=== PATIENT | female | born 1990 | race Caucasian/White ===

== ENCOUNTER 2017-02-17 10:33 | Inpatient (IN) | payer BC ==
[~2017-02-17] VITALS: Ht 180.3 cm; Wt 69.1 kg
[~2017-02-17 10:33] MED LIST: AMITRIPTYLINE H50 MG PO; APIDRA100 UNIT/2 SQ; APIDRA100 UNIT/2 SUB-Q; ASPIR 8181 MG PO; CALCIUM CARBON200 MG PO; CLOTRIMAZOLE45 GM VAGINAL; DIFLUCAN100 MG PO; DIFLUCAN150 MG PO; FLUCONAZOLE150 MG PO; GABAPENTIN100 MG PO; HUMALOG100 UNITS/ INJ; HUMALOG100 UNITS/ IV; IBUPROFEN800 MG PO; INSULIN; INSULIN SYRING1 EA13 MISC; LANTUS100 UNIT/1 SUB-Q; LANTUS100 UNITS/ SUB-Q; LISINOPRIL5 MG PO; LOSARTAN POTASS25 MG PO; LOSARTAN POTASS50 MG PO; MAG-OXIDE400 MG PO; MICONAZOLE NITR45 GM PV; MUCINEX1200 MG PO; NAPROXEN500 MG PO; NICOTINE PATCH1 EAC1 TD; NICOTINE PATCH1 EACH TD; NOVOLIN N100 UNIT/1 SUB-Q; NOVOLIN R100 UNIT/1 INJ; NOVOLOG100 UNITS/; NOVOLOG100 UNITS/ SUB-Q; NYSTOP60 GM TOP; OMEPRAZOLE20 MG PO; ORTHO TRI-CYCL1 EACH PO; OXYCODONE HCL5 MG PO; POTASSIUM 25 M25 MEQ PO; POTASSIUM CHLO20 ME1 PO; RELION NOV100 UNIT/1 SUB-Q; TRAMADOL HCL50 MG PO; ULTRAM50 MG PO; VITAMIN D1000 UNI1 PO; VITAMIN D250000 UNIT PO; ZANTAC150 MG PO; ZOLOFT50 MG PO
[2017-02-17] MEDS ORDERED: SERTRALINE HCL100 MG PO (10:42)
--- OUTSIDE RECORDS SUMMARY | 2017-02-17 10:58 | XMS ---
Demographics + + + | Address | [address] | | | [address] | | | [place] [address] | + + + | Preferred Language | Unknown | + + + | Marital Status | Unknown | + + + | Gnosticist Affiliation | Unknown | + + + | Race | Unknown | + + + | Ethnic Group | Unknown | + + + Author + + + | Author | [facility] | + + + | Organization | [facility] | + + + | Address | [address] | | | [place] [address] | + + + | Phone | | + + + Care Team Providers + + + + | Care Crop And Soil Technician Name | Role | Phone | + + + + Unavailable | Unavailable | + + + + PROBLEMS +---------+ + + +--------+ + + | Type | Condition | ICD9-CM | [id number] | Onset | Condition | SNOMED | | | | Code | Code | Dates | Status | Code | +---------+ + + +--------+ + + | Problem | Pain in | | M25.511 | | Active | [id number] | | | right | | | | | | | | shoulder | | | | | | +---------+ + + +--------+ + + | Problem | Diabetes | E10.65 | | | Active | [id number] | | | mellitus | | | | | [address] | | | type 1, | | | | | | | | uncontroll | | | | | | | | ed | | | | | | +---------+ + + +--------+ + + | Problem | History of | Z86.39 | | | Active | | | | diabetes | | | | | | | | with | | | | | | | | ketoacidos | | | | | | | | is | | | | | | +---------+ + + +--------+ + + | 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 | 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 | | | 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 | | | | | | | | vagina | | | | | | +---------+ + + +--------+ + + | 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 | | | | | | +---------+ + + +--------+ + + | Problem | Depression | | F41.8 | | Active | [id number] | | | with | | | | | | | | anxiety | | | | | | +---------+ + + +--------+ + + | Problem | Hypertensi | | I10 | | Active | 77401113 | | | on | | | | | | +---------+ + + +--------+ + + | Problem | Alcohol | F10.10 | | | Active | 290657965 | | | abuse, | | | | | | | | episodic | | | | | | +---------+ + + +--------+ + + | Problem | Trigger | | M65.322 | | Active | 8058958 | | | finger, | | | | | | | | left index | | | | | | | | finger | | | | | | +---------+ + + +--------+ + + | 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 | | | amine | | | | | | | | abuse | | | | | | +---------+ + + +--------+ + + | Problem | Allergic | 995.3 | | | Active | [id number] | | | Reaction | | | | | | +---------+ + + +--------+ + + | Problem | Vitamin D | | E55.9 | | Active | 44002252 | | | deficiency | | | | | | +---------+ + + +--------+ + + | Problem | Candidal | 112.3 | | | Active | 286575676 | | | intertrigo | | | | | | +---------+ + + +--------+ + + | Problem | Alcoholism | F10.20 | | | Active | 4502458 | +---------+ + + +--------+ + + | Problem | Other | G89.29 | | | Active | 76599560 | | | chronic | | | | | | | | pain | | | | | | +---------+ + + +--------+ + + ALLERGIES Unknown Allergies SOCIAL HISTORY No smoking Hx information available PLAN OF CARE VITAL SIGNS MEDICATIONS Unknown Medications RESULTS No Results PROCEDURES No Known procedures IMMUNIZATIONS No Known Immunizations"
--- NOTE | 2017-02-17 13:15 | NUR ---
PT ADMITTED TO THE UNIT AT THIS TIME, IVF'S AND INSULIN DRIP STARTED ORDER. PT AT TIMES HAS DRY HEAVEING AND UP TO BS COMMODE.
--- NOTE | 2017-02-17 16:02 | NUR ---
insulin drip remains at 4units/hour at this time. pt appears to be resting comfortable at this time.
--- NOTE | 2017-02-17 17:22 | NUR ---
PT ORDERED DINNER AT THIS TIME, HEART RATE CONTIOUES TO 90-100'S. CARDIZEM DRIP @5MG/HR AT THIS TIME.
--- NOTE | 2017-02-17 17:25 | NUR ---
PT UP TO THE BS COMMODE VOIDED, AT TIMES HAS DRY HEAVES. LAB HERE TO OBTAIN A SAMPLE.
--- NOTE | 2017-02-17 19:45 | NUR ---
PT REPORT RECIVED FROM DAY SHIFT RN. PT IS RESTING IN BED AT THIS TIME. ALL QUESTIONS SANSWERED. WILL CALL MD WITH NEXT BLOOD SUGAR RESULT.
--- NOTE | 2017-02-17 20:20 | NUR ---
CALLED TO UPDATE REGAURDING PT BS. NEW ORDERS TO LEAVE INSULIN GTT AT 2 UNITS PER HOUR. STATED TO ONLY CALL IF BS <150 >250. ALSO OKAYED PT TO HAVE ICE CHIPS, WATER, AND CLEAR LIQUIDS WITH NO CARBS OR SUGARS. WILL CONTINUE TO MONITOR.
--- NOTE | 2017-02-17 20:30 | NUR ---
ASSISTED PT UP TO CAMMODE. PT STATES SHE FEELS WEAK WITH THE DKA. NO NAUSEA OR VOMITING. GAVE PT ICE CHIPS AND DIET SPRITE. PT TOLERATED WELL SO FAR. PT ASSESSMENT COMPLETED. PT SKIN IS DIRTY. PT DENIED BATHWIPES AT THIS TIME. WILL CONTINUE TO CLOSELY MONITOR.
--- NOTE | 2017-02-17 22:15 | NUR ---
CALLED MD TO UPDATE ABOUT INCREASE IN PT BS. NEW ORDER TO INCREASE INSULIN GTT TO 3 UNITS PER HOUR. PT SLIGHTLY NAUSEATED AT THIS TIME. GAVE PRN PHENERGAN. WILL CONTINUE TO MONITOR.
--- NOTE | 2017-02-17 23:36 | NUR ---
PT DENIES NAUSEA AT THIS ITME. WILL CONTINUE TO MONITOR.
--- NOTE | 2017-02-18 00:14 | NUR ---
PT BS TRENDING DOWN SINCE MD INCREASED INSULIN GTT TO 3 UNITS/HR. WILL CONTINUE TO CLOSELY MONITOR.
--- NOTE | 2017-02-18 00:35 | NUR ---
CALLED AND UPDATED MD THAT BS INCREASED SLIGHTLY FROM PREVIOUS BS CHECK. IS OKAY WITH PT GTT REMAINING THE SAME AT THIS TIME. WILL CALL WITH NEXT BS AND STAT LABS.
--- NOTE | 2017-02-18 02:00 | NUR ---
called reguarding lab results. per md maintain current fluids and insulin gtt. will try to switch pt from insuling gtt to sub q in the am after labs are checked again. no other issues at this time. will continue to monitor.
--- NOTE | 2017-02-18 04:00 | NUR ---
PT RESTING IN BED AT THIS TIME. WILL CONTINUE TO MONITOR.
--- NOTE | 2017-02-18 05:32 | NUR ---
CALLED MD TO UPDATE REGUARDING PT BS. PER MD TURN GTT BACK TO 2 UNITS PER HOUR. WILL CONTINUE TO MONITOR.
--- NOTE | 2017-02-18 05:50 | NUR ---
PT HAVING NAUSEA. GAVE PRN PHENERGAN FOR NAUSEA. WILL CONTINUE TO MONTIOR AT THIS ITME.
--- NOTE | 2017-02-18 08:53 | NUR ---
REPORT RECEIVED FROM TORRIE FERRARA. PATIENT SLEEPING UPON INITIAL ASSESSMENT AND APPEARS IN NO ACUTE DISTRESS. HEART RATE IN THE 70-80s, SINUS RHYTHM. PT HAS INSULIN GTT INFUSING AT 2 UNITS/HR AT THIS TIME, AND IVF AT 200 ML/HR. PT HAS ONLY 1 IV SITE AT THIS TIME. BLOOD PRESSURE ELEVATED AT 172/117. PATIENT AWAKE, SOMEWHAT DROWSY, BUT RESPONDS APPROPRIATELY. PT ANSWERS QUESTIONS APPROPRIATELY. PT DOES BECOME NAUSEOUS WITH ANY MOVEMENT AND SITS UP IN BED AND SEEMS TO BE CLOSE TO VOMITING. 4 MG IV ZOFRAN GIVEN. ANOTHER IV SITE TO BE OBTAINED. CONTINUE TO MONITOR.
--- NOTE | 2017-02-18 10:02 | NUR ---
DR. MELO IN ROOM TO EVALUATE PATIENT. PATIENT WITHDRAWN AND NOT VERY INTERACTIVE WITH ASSESSMENT. PT TO HAVE CT SCAN OF ABDOMEN TODAY. PT NOT VERY HUNGRY EITHER. CBG AT THIS TIME IS 212. CONTINUE TO MONITOR.
--- NOTE | 2017-02-18 11:14 | NUR ---
PATIENT GIVEN 12 UNITS OF LEVEMIR SQ. PT TO BE TURNED OFF INSULIN GTT AT 1210. PT'S IVF CHANGED TO LR AT 75 ML/HR. PT SIPPING ON CONTRAST DYE. PT'S SIGNIFICANT OTHER IN ROOM AT BEDSIDE. EXPLAINED PLAN OF CARE TO HIM WELL PATIENT. PATIENT RESTING AND NOT WANTING TO BE BOTHERED. CONTINUE TO MONITOR.
--- NOTE | 2017-02-18 12:22 | NUR ---
PATIENT ABLE TO DRINK MOST OF THE FIRST DOSE OF GASTROGRAFIN. PT NOW TO DRINK 2ND DOSE AND CT SCAN WILL OCCUR AROUND 1300. PT'S ASSESSMENT COMPLETE. INSULIN GTT TURNED OFF AT 1215. PT'S CBG AT 1210 WAS 229. PT GIVEN 4 UNITS OF NOVOLOG. S/O OUT OF ROOM AT THIS TIME. CONTINUE TO MONITOR.
--- NOTE | 2017-02-18 13:26 | NUR ---
PATIENT DOWN AND BACK FROM CT SCAN. PT TOLERATED WELL. PT NOW NAUESOUS AND GIVEN IV REGLAN. PT'S S/O IN ROOM SLEEPING IN CHAIR. DENIES FURTHER NEEDS.
--- NOTE | 2017-02-18 16:31 | NUR ---
PATIENT INFORMED OF HER PANCREATITIS AND HER NPO STATUS. PATIENT NOT VERY HAPPY ABOUT NOT BEING ABLE TO DRINK ANYTHING AT ALL, BUT AGREEABLE. PT GIVEN ZOFRAN FOR NAUSEA. PT NOW RESTING IN BED. PT REFUSES TO SHOWER TODAY AND STATES SHE WILL TOMORROW. IVF INFUSING AT 125 ML/HR.
--- NOTE | 2017-02-18 20:20 | NUR ---
GAVE CHARGE NURSE REPORT ON PT. PT HAS ORDERS TO TRANSFER TO [facility]. PER MD PT CAN HAVE CLEAR LIQUIDS TONIGHT AND NPO AT MIDNIGHT FOR STUDY IN THE MORNING. PT UPDATED ON PLAN OF CARE. PT BELONGINGS GATHERED AND SENT WITH PT. ROLL BUILDER TO PT ROOM TO TRANSFER PT IN BED. NO OTHER ISSUES.
--- NOTE | 2017-02-18 20:25 | NUR ---
PT TRANSFERRED FROM ICU TO ROOM 113 MED-SURG VIA BED. PT IS ALERT, SLOW TO RESPOND, BUT RESPONDS APPROP. STATES SHE IS COMFORTABLE, REQUESTING JELLO, ORIENTED TO ROOM AND CALL LIGHT. IVF PATENT. ORDERS NOTED.
--- NOTE | 2017-02-18 22:30 | NUR ---
PT STATES SHE IS FEELING SOME NAUSEA AFTER EATING 2 CUPS OF JELLO. ZOFRAN 4MG IV GIVEN. BOYFRIEND HERE TO STAY. DAYBED MADE UP FOR HIM.
--- NOTE | 2017-02-19 02:50 | NUR ---
BLOODSUGAR 199, STATES SHE IS COMFORTABLE. SBA UP TO BATHROOM TO VOID.
--- NOTE | 2017-02-19 06:46 | NUR ---
SLEPT WELL TONIGHT, USING CALL LIGHT APPROP. FOR ASSIST OOB. NAUSEA BETTER THIS AM. REMAINS NPO. IVF PATENT.
--- NOTE | 2017-02-19 10:09 | NUR ---
PENCIL INSPECTOR IN PATIENT ROOM AT THIS TIME.
--- NOTE | 2017-02-19 10:27 | NUR ---
ASKED PT ABOUT A SHOWER AND SHE STATED THAT SHE WANTED TO WAIT UNTIL SHE GOT TO EAT BECAUSE SHE FELT REALLY WEAK AT THE MOMENT
--- NOTE | 2017-02-19 10:52 | NUR ---
PT ASLEEP AT SHIFT CHANGE, AWAKENED FOR ASSESSMENT. REMAINS NPO FOR ULTRA SOUND. SIGNIFICANT OTHER PRESENT IN ROOM. ULTRA SOUND COMPLETED ADA CLEAR LIQUIDS PROVIDED. PT AGREES TO CALL FOR ASSIST NEEDED REMAINS RESTING IN BED AT THIS TIME
--- NOTE | 2017-02-19 13:35 | NUR ---
PT TOLERATES FULL LIQUID LUNCH (LARGE) DENIES NAUSEA, PAIN, OR OTHER DISCOMFORTS. PT REQUESTS ADVANCE TO REGULAR DIET REPORTED TO DR MELO AGREES FOR DINNER ADA TOLERATED. PT SITTING UP IN BED, BOYFRIEND REMAINS IN ROOM. TV CNC OPERATOR PROGRAMMER LIGHT IN HAND DENIES FURTHER NEEDS
--- NOTE | 2017-02-19 14:47 | NUR ---
ELEVATED BP REPORTED TO DR MELO ORDERS RECIEVED
--- NOTE | 2017-02-19 17:36 | NUR ---
PT TOLERATES 100% OF EVENING MEAL NO C/O NAUSEA OR DISCOMFORT. UP INDEPENDANTLY IN ROOM DENIES NEEDS AT THIS TIME ANTICIPATES GOING HOME TOMORROW
--- NOTE | 2017-02-19 20:50 | NUR ---
PT LAYING IN BED, AWAKE, WATCHING TV. FRIEND ON SOFA IN ROOM. PT PLEASENT, ALERT AND ORIENTED X4. BS 350, RECIEVED SS AND FILI. PT HAS NO NEEDS AT THIS TIME. DENIES PAIN. CALL LIGHT IN REACH.
--- NOTE | 2017-02-20 00:37 | NUR ---
PT APPEARS TO BE SLEEPING. RR WNL AND UNLABORED.
--- NOTE | 2017-02-20 05:09 | NUR ---
PT HAD UNEVENTFUL NIGHT. SLEPT MAJORITY OF SHIFT. NO COMPLAINTS OF PAIN. THE 0200 BS WAS 116, NO SS REQUIRED. BOYFRIEND IN ROOM. POSSIBLE DC TO HOME TODAY.
--- NOTE | 2017-02-20 07:42 | NUR ---
BEDSIDE REPORT RECEIVED FROM SAFEKEEPING CLERK RN USING 5 P'S. PT SLEEPING IN BED. RESP EVEN, UNLABOURED. NO S/S DISTRESS. BOYFRIEND IN ROOM. AWAKE. DENIES NEEDS. CALL LIGHT IN REACH.
--- NOTE | 2017-02-20 08:03 | NUR ---
PATIENT SITTING UP IN BED EATING BREAKFAST. PATIENT STATES SHE WOULD LIKE TO SHOWER AFTER BREAKFAST. NO OTHER NEEDS AT THIS TIME.
--- NOTE | 2017-02-20 09:00 | NUR ---
PT AWAKE AND ALERT IN BED. EATING BREAKFAST. GIVEN INSULIN PER CARB COUNT. DENIES ADDITIONAL NEEDS. CALL LIGHT IN REACH. SO AT BEDSIDE.
[2017-02-20] MEDS ORDERED: LANTUS100 UNITS/ SUB-Q (09:01)
--- NOTE | 2017-02-20 09:02 | NUR ---
Medications reconciled by pharmacist as current and correct using pharmacy records and patient interview. She uses Humalog insulin with carb count + sliding scale
--- NOTE | 2017-02-20 09:31 | NUR ---
SPOKE WITH PATIENT AND BOYFRIEND IN ROOM. PATIENT FEELING "GREAT" AND HOPING TO GO HOME. KNOWS NO BARRIERS TO RETURNING HOME.
[2017-02-20] MEDS ORDERED: NICORETTE4 M2 BUCCAL (11:19)
[2017-02-20] MEDS ORDERED: HUMALOG100 UNIT/2 SUB-Q ×3 (11:20→20:29)
--- NOTE | 2017-02-20 12:33 | NUR ---
BP 160/100 MANUALLY ON DISCHARGE VITALS. NOTIFIED. OK TO SEND PT HOME AND HAVE HER F/U WITH PCP. DC INSTRUCTIONS GIVEN BY PHARMACY AND RN. RN TO CALL WHEN READY FOR DC.
--- NOTE | 2017-02-20 14:04 | NUR ---
VISITED WITH PT SHE WAS PREPARING TO DC. SHE INTRO. ME TO HER BOYFRIEND, AND SAID SHE IS WORKING HARD TO STAY HEALTHIER. SHE HAD A BIG SMILE, AND THANKED ME FOR CHECKING IN ON HER. EXTENDED A BLESSING.
--- NOTE | 2017-02-21 15:22 | NUR ---
SMOKING CESSATION REQUEST FAXED TO PATIENTS PCP, THALIA CHACON.
== END 2017-02-20 12:58 | disposition home or self-care (01) | DRG 438 ==
LOC: ED 10:33 → CCU 13:04 → MS 02-18 20:32
PROVIDERS: ADMIT Internal Medicine
DX: K85.20 Alcohol induced acute pancreatitis without necrosis or infection (principal); E10.10 Type 1 diabetes mellitus with ketoacidosis without coma; Z79.4 Long term (current) use of insulin; F39 Unspecified mood [affective] disorder; I10 Essential (primary) hypertension; M54.9 Dorsalgia, unspecified; F17.210 Nicotine dependence, cigarettes, uncomplicated
CPT/HCPCS: 36415; 74177; 76705; 80048; 80053; 81001; 82010; 82800; 83036; 83690; 83735; 84703; 85025; 96361; 96374; 96375; 99285; 99406; J1650; J2405; J2550; J2765; J3475; J7030; J7042; J7120; Q9967

== ENCOUNTER 2017-06-05 17:07 | Observation (INO) | payer OTHER ==
[~2017-06-05] VITALS: Ht 180.3 cm; Wt 76.5 kg
--- OUTSIDE RECORDS SUMMARY | ~2017-06-05 | XMS ---
Demographics + + + | Address | [address] | | | [address] | | | [place] [address] | + + + | Preferred Language | Unknown | + + + | Marital Status | Unknown | + + + | Orthodox Affiliation | Unknown | + + + | Race | Unknown | + + + | Ethnic Group | Unknown | + + + Author + + + | Author | [facility] | + + + | Organization | [facility] | + + + | Address | [address] | | | [place] [address] | + + + | Phone | | + + + Care Team Providers + + + + | Care Valet Cashier Name | Role | Phone | + + + + Unavailable | Unavailable | + + + + PROBLEMS +---------+ + + +--------+ + + | Type | Condition | ICD9-CM | [id number] | Onset | Condition | SNOMED | | | | Code | Code | Dates | Status | Code | +---------+ + + +--------+ + + | Problem | Pain in | | M25.511 | | Active | [id number] | | | right | | | | | | | | shoulder | | | | | | +---------+ + + +--------+ + + | Problem | Diabetes | E10.65 | | | Active | [id number] | | | mellitus | | | | | [address] | | | type 1, | | [...] | B37.3 | | | Active | 555169882 | | | candidiasi | | | [...] | | F41.8 | | Active | 137487671 | | | with | | | | | | | | anxiety | | | | | | +---------+ + + +--------+ + + | Problem | Hypertensi | | I10 | | Active | 70146993 | | | on | | | | | | +---------+ + + +--------+ + + | Problem | Alcohol | F10.10 | | | Active | 140425218 | | | abuse, | | | | | | | | episodic | | | | | | +---------+ + + +--------+ + + | Problem | Trigger | | M65.322 | | Active | 6866673 | | | finger, | | | | | | | | left index | | | | | | | | finger | | | | | | +---------+ + + +--------+ + + | 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 | 750798962 | | | amine | | | | | | | | abuse | | | | | | +---------+ + + +--------+ + + | Problem | Allergic | 995.3 | | | Active | 696327206 | | | Reaction | | | | | | +---------+ + + +--------+ + + | Problem | Vitamin D | | E55.9 | | Active | 54013970 | | | deficiency | | | | | | +---------+ + + +--------+ + + | Problem | Candidal | 112.3 | | | Active | 636794344 | | | intertrigo | | | | | | +---------+ + + +--------+ + + | Problem | Alcoholism | F10.20 | | | Active | 6093906 | +---------+ + + +--------+ + + | Problem | Other | G89.29 | | | Active | 29622080 | | | chronic | | | | | | | | pain | | | | | | +---------+ + + +--------+ + + ALLERGIES Unknown Allergies SOCIAL HISTORY No smoking Hx information available PLAN OF CARE VITAL SIGNS MEDICATIONS Unknown Medications RESULTS No Results PROCEDURES No Known procedures IMMUNIZATIONS No Known Immunizations"
--- OUTSIDE RECORDS SUMMARY | ~2017-06-05 | XMS ---
Demographics + + + | Address | [address] | | | [address] | | | [place] [address] | + + + | Preferred Language | Unknown | + + + | Marital Status | Unknown | + + + | Pentecostal Affiliation | Unknown | + + + | Race | Unknown | + + + | Ethnic Group | Unknown | + + + Author + + + | Author | [facility] | + + + | Organization | [facility] | + + + | Address | [address] | | | [place] [address] | + + + | Phone | | + + + Care Team Providers + + + + | Care Licensed Therapist Name | Role | Phone | + + + + Unavailable | Unavailable | + + + + PROBLEMS +---------+ + + +--------+ + + | Type | Condition | ICD9-CM | [id number] | Onset | Condition | SNOMED | | | | Code | Code | Dates | Status | Code | +---------+ + + +--------+ + + | Problem | Pain in | | M25.511 | | Active | 198301155 | | | right | | | | | | | | shoulder | | | | | | +---------+ + + +--------+ + + | Problem | Diabetes | E10.65 | | | Active | 1505210039 | | | mellitus | | | | | [address] | | | type 1, | | [...] | B37.3 | | | Active | 445534649 | | | candidiasi | | | [...] | | F41.8 | | Active | 427606679 | | | with | | | | | | | | anxiety | | | | | | +---------+ + + +--------+ + + | Problem | Hypertensi | | I10 | | Active | 78432839 | | | on | | | | | | +---------+ + + +--------+ + + | Problem | Alcohol | F10.10 | | | Active | 735407698 | | | abuse, | | | | | | | | episodic | | | | | | +---------+ + + +--------+ + + | Problem | Trigger | | M65.322 | | Active | 0633944 | | | finger, | | | | | | | | left index | | | | | | | | finger | | | | | | +---------+ + + +--------+ + + | 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 | 961197164 | | | amine | | | | | | | | abuse | | | | | | +---------+ + + +--------+ + + | Problem | Allergic | 995.3 | | | Active | 335372383 | | | Reaction | | | | | | +---------+ + + +--------+ + + | Problem | Vitamin D | | E55.9 | | Active | 52782509 | | | deficiency | | | | | | +---------+ + + +--------+ + + | Problem | Candidal | 112.3 | | | Active | 471425526 | | | intertrigo | | | | | | +---------+ + + +--------+ + + | Problem | Alcoholism | F10.20 | | | Active | 3322751 | +---------+ + + +--------+ + + | Problem | Other | G89.29 | | | Active | 84242796 | | | chronic | | | | | | | | pain | | | | | | +---------+ + + +--------+ + + ALLERGIES + + + + +--------+ | Substance | Reaction | Event Type | Date | Status | + + + + +--------+ | Latex | hives/itching | Drug Allergy | Mar, | Active | + + + + +--------+ | Lisinopril | dry cough | Drug Allergy | Mar, | Active | + + + + +--------+ SOCIAL HISTORY No smoking Hx information available PLAN OF CARE + +---------+ | Activity | Details | + +---------+ +---+ | | +---+ + + + | Follow Up | 6 Weeks Reason:null | + + + VITAL SIGNS + + + + | Height | 68 in | 2017-03-23 | + + + + | Weight | 156.6 lbs | 2017-03-23 | + + + + | BMI | 23.81 kg/m2 | 2017-03-23 | + + + + | Temperature | 98.6 degrees Fahrenheit | 2017-03-23 | + + + + | Heart Rate | 82 /min | 2017-03-23 | + + + + | Blood pressure systolic | 131 mm Hg | 2017-03-23 | + + + + | Blood pressure diastolic | 96 mm Hg | 2017-03-23 | + + + + MEDICATIONS + + + + + + + +--------+ | Medicati | Instruct | Dosage | Frequenc | Start | End Date | Duration | Status | | on | ions | | y | Date | | | | + + + + + + + +--------+ | Glucagon | intramus | as | | 08 Feb, | | | Active | | | cularly | directed | | 2015 | | | | | Emergenc | may | | | | | | | | y 1 MG | repeat q | | | | | | | | | 20 | | | | | | | | | minutes | | | | | | | | | PRN | | | | | | | | | blood | | | | | | | | | sugara | | | | | | | | | <50 | | | | | | | + + + + + + + +--------+ | Insulin | subcutan | as | | 23 Sep, | | | Active | | Syringe | eously 6 | directed | | 2015 | | | | | 31G X | x per | | | | | | | | 5/16 | day | | | | | | | + + + + + + + +--------+ | FreeStyl | In Vitro | as | | 01 Nov, | | | Active | | e Lite | qid | directed | | 2016 | | | | | Test . | blood | | | | | | | | | sugar | | | | | | | | | checks | | | | | | | + + + + + + + +--------+ | NovoLog | | INJECT | | | | 30 | Active | | 100 | | SUBCUTAN | | | | | | | UNIT/ML | | EOUSLY, | | | | | | | | | 1 UNIT | | | | | | | | | FOR | | | | | | | | | EVERY 15 | | | | | | | | | CARBS, | | | | | | | | | THEN FOR | | | | | | | | | EVERY | | | | | | | | | 50 UNITS | | | | | | | | | OVER | | | | | | | | | 150 THEN | | | | | | | | | 1 UNIT | | | | | | | | | IS ADDED | | | | | | | | | 3 TO 4 | | | | | | | | | TIMES | | | | | | | | | DAILY | | | | | | + + + + + + + +--------+ | FreeStyl | | as | | Jul, | | | Active | | e | | directed | | 2014 | | | | | Lancets | | | | | | | | + + + + + + + +--------+ | Insulin | subcutan | as | | Nov, | | | Active | | Syringe- | eously | directed | | 2016 | | | | | Needle | 4x per | | | | | | | | U-40 25G | day | | | | | | | | X 5/8 | | | | | | | | + + + + + + + +--------+ | FreeStyl | In Vitro | as | | Jul, | | | Active | | e Test | check | directed | | 2014 | | | | | | QID | | | | | | | + + + + + + + +--------+ | Sertrali | Orally | 1 tablet | 24h | | | | Active | | ne HCl | Once a | | | | | | | | 100 MG | day | | | | | | | + + + + + + + +--------+ | FreeStyl | | as | | 23 Dec, | | | Active | | e System | | directed | | 2015 | | | | + + + + + + + +--------+ | Humalog | Subcutan | ss: 15 | | | | | Active | | 100 | eous tid | carbs=1 | | | | | | | UNIT/ML | prn | unit. | | | | | | | | high | then for | | | | | | | | blood | every | | | | | | | | sugars | 50 units | | | | | | | | | over | | | | | | | | | 150 then | | | | | | | | | 1 unit | | | | | | | | | is added | | | | | | + + + + + + + +--------+ | Lantus | Subcutan | 12 Units | 12h | | | 30 days | Active | | 100 | eous BID | in AM, | | | | | | | UNIT/ML | | 20 units | | | | | | | | | at HS | | | | | | + + + + + + + +--------+ RESULTS No Results PROCEDURES + + + + + | Procedure | Date Ordered | Related Diagnosis | Body Site | + + + + + | Est Level III | Mar 23, 2017 | | | | Intermediate | | | | + + + + + | DSCHRG MED/CURRENT | Mar 23, 2017 | | | | MED MERGE | | | | + + + + + | DOC MEDS VERIFIED | Mar 23, 2017 | | | | W/PT OR RE | | | | + + + + + IMMUNIZATIONS No Known Immunizations"
--- OUTSIDE RECORDS SUMMARY | ~2017-06-05 | XMS ---
Demographics + + + | Address | [address] | | | [address] | | | [place] [address] | + + + | Preferred Language | Unknown | + + + | Marital Status | Unknown | + + + | Zoroastrian Affiliation | Unknown | + + + | Race | Unknown | + + + | Ethnic Group | Unknown | + + + Author + + + | Author | [facility] | + + + | Organization | [facility] | + + + | Address | [address] | | | [place] [address] | + + + | Phone | | + + + Care Team Providers + + + + | Care Depot Manager Name | Role | Phone | + + + + Unavailable | Unavailable | + + + + PROBLEMS +---------+ + + +--------+ + + | Type | Condition | ICD9-CM | [id number] | Onset | Condition | SNOMED | | | | Code | Code | Dates | Status | Code | +---------+ + + +--------+ + + | Problem | Pain in | | M25.511 | | Active | [id number] | | | right | | | | | | | | shoulder | | | | | | +---------+ + + +--------+ + + | Problem | Diabetes | E10.65 | | | Active | [id number] | | | mellitus | | | | | [address] | | | type 1, | | [...] | B37.3 | | | Active | 669957304 | | | candidiasi | | | [...] | | F41.8 | | Active | 116667751 | | | with | | | | | | | | anxiety | | | | | | +---------+ + + +--------+ + + | Problem | Hypertensi | | I10 | | Active | 75051180 | | | on | | | | | | +---------+ + + +--------+ + + | Problem | Alcohol | F10.10 | | | Active | 999060457 | | | abuse, | | | | | | | | episodic | | | | | | +---------+ + + +--------+ + + | Problem | Trigger | | M65.322 | | Active | [id number] | | | finger, | | | | | | | | left index | | | | | | | | finger | | | | | | +---------+ + + +--------+ + + | 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 | [id number] | | | amine | | | | | | | | abuse | | | | | | +---------+ + + +--------+ + + | Problem | Allergic | 995.3 | | | Active | [id number] | | | Reaction | | | | | | +---------+ + + +--------+ + + | Problem | Vitamin D | | E55.9 | | Active | [id number] | | | deficiency | | | | | | +---------+ + + +--------+ + + | Problem | Candidal | 112.3 | | | Active | [id number] | | | intertrigo | | | | | | +---------+ + + +--------+ + + | Problem | Alcoholism | F10.20 | | | Active | [id number] | +---------+ + + +--------+ + + | Problem | Other | G89.29 | | | Active | [id number] | | | chronic | | | | | | | | pain | | | | | | +---------+ + + +--------+ + + ALLERGIES Unknown Allergies SOCIAL HISTORY No smoking Hx information available PLAN OF CARE VITAL SIGNS MEDICATIONS Unknown Medications RESULTS No Results PROCEDURES No Known procedures IMMUNIZATIONS No Known Immunizations"
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
--- OUTSIDE RECORDS SUMMARY | ~2017-06-05 | XMS ---
Demographics + + + | Address | [address] | | | [address] | | | [place] [address] | + + + | Preferred Language | Unknown | + + + | Marital Status | Unknown | + + + | Faith Affiliation | Unknown | + + + | Race | Unknown | + + + | Ethnic Group | Unknown | + + + Author + + + | Author | [facility] | + + + | Organization | [facility] | + + + | Address | [address] | | | [place] [address] | + + + | Phone | | + + + Care Team Providers + + + + | Care Business Analyst Sales Operations Name | Role | Phone | + + + + Unavailable | Unavailable | + + + + PROBLEMS +---------+ + + +--------+ + + | Type | Condition | ICD9-CM | [id number] | Onset | Condition | SNOMED | | | | Code | Code | Dates | Status | Code | +---------+ + + +--------+ + + | Problem | Pain in | | M25.511 | | Active | [id number] | | | right | | | | | | | | shoulder | | | | | | +---------+ + + +--------+ + + | Problem | Diabetes | E10.65 | | | Active | [id number] | | | mellitus | | | | | [address] | | | type 1, | | [...] | B37.3 | | | Active | 874724801 | | | candidiasi | | | [...] | | F41.8 | | Active | 998219346 | | | with | | | | | | | | anxiety | | | | | | +---------+ + + +--------+ + + | Problem | Hypertensi | | I10 | | Active | 74764074 | | | on | | | | | | +---------+ + + +--------+ + + | Problem | Alcohol | F10.10 | | | Active | 332691316 | | | abuse, | | | | | | | | episodic | | | | | | +---------+ + + +--------+ + + | Problem | Trigger | | M65.322 | | Active | 5615967 | | | finger, | | | | | | | | left index | | | | | | | | finger | | | | | | +---------+ + + +--------+ + + | 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 | 645605702 | | | amine | | | | | | | | abuse | | | | | | +---------+ + + +--------+ + + | Problem | Allergic | 995.3 | | | Active | 698759018 | | | Reaction | | | | | | +---------+ + + +--------+ + + | Problem | Vitamin D | | E55.9 | | Active | 45040405 | | | deficiency | | | | | | +---------+ + + +--------+ + + | Problem | Candidal | 112.3 | | | Active | 337507503 | | | intertrigo | | | | | | +---------+ + + +--------+ + + | Problem | Alcoholism | F10.20 | | | Active | 4457828 | +---------+ + + +--------+ + + | Problem | Other | G89.29 | | | Active | 56905819 | | | chronic | | | | | | | | pain | | | | | | +---------+ + + +--------+ + + ALLERGIES Unknown Allergies SOCIAL HISTORY No smoking Hx information available PLAN OF CARE VITAL SIGNS MEDICATIONS Unknown Medications RESULTS No Results PROCEDURES No Known procedures IMMUNIZATIONS No Known Immunizations"
--- OUTSIDE RECORDS SUMMARY | ~2017-06-05 | XMS ---
Demographics + + + | Address | [address] | | | [address] | | | [place] [address] | + + + | Preferred Language | Unknown | + + + | Marital Status | Unknown | + + + | Holiness Affiliation | Unknown | + + + | Race | Unknown | + + + | Ethnic Group | Unknown | + + + Author + + + | Author | [facility] | + + + | Organization | [facility] | + + + | Address | [address] | | | [place] [address] | + + + | Phone | | + + + Care Team Providers + + + + | Care It Architect Name | Role | Phone | + + + + Unavailable | Unavailable | + + + + PROBLEMS +---------+ + + +--------+ + + | Type | Condition | ICD9-CM | [id number] | Onset | Condition | SNOMED | | | | Code | Code | Dates | Status | Code | +---------+ + + +--------+ + + | Problem | Pain in | | M25.511 | | Active | [id number] | | | right | | | | | | | | shoulder | | | | | | +---------+ + + +--------+ + + | Problem | Diabetes | E10.65 | | | Active | 1526414386 | | | mellitus | | | | | [address] | | | type 1, | | [...] | B37.3 | | | Active | 438179497 | | | candidiasi | | | [...] | | F41.8 | | Active | 514833987 | | | with | | | | | | | | anxiety | | | | | | +---------+ + + +--------+ + + | Problem | Hypertensi | | I10 | | Active | 94590357 | | | on | | | | | | +---------+ + + +--------+ + + | Problem | Alcohol | F10.10 | | | Active | 198489551 | | | abuse, | | | | | | | | episodic | | | | | | +---------+ + + +--------+ + + | Problem | Trigger | | M65.322 | | Active | 5301053 | | | finger, | | | | | | | | left index | | | | | | | | finger | | | | | | +---------+ + + +--------+ + + | 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 | 278176429 | | | amine | | | | | | | | abuse | | | | | | +---------+ + + +--------+ + + | Problem | Allergic | 995.3 | | | Active | 513517993 | | | Reaction | | | | | | +---------+ + + +--------+ + + | Problem | Vitamin D | | E55.9 | | Active | 62558225 | | | deficiency | | | | | | +---------+ + + +--------+ + + | Problem | Candidal | 112.3 | | | Active | 126778270 | | | intertrigo | | | | | | +---------+ + + +--------+ + + | Problem | Alcoholism | F10.20 | | | Active | 8277772 | +---------+ + + +--------+ + + | Problem | Other | G89.29 | | | Active | 26075465 | | | chronic | | | | | | | | pain | | | | | | +---------+ + + +--------+ + + ALLERGIES Unknown Allergies SOCIAL HISTORY No smoking Hx information available PLAN OF CARE VITAL SIGNS MEDICATIONS Unknown Medications RESULTS No Results PROCEDURES No Known procedures IMMUNIZATIONS No Known Immunizations"
[~2017-06-05 17:07] MED LIST changes: +HUMALOG100 UNIT/2 SUB-Q; +NICORETTE4 M2 BUCCAL; +SERTRALINE HCL100 MG PO
[2017-06-05] MEDS ORDERED: COZAAR25 MG PO (17:31)
[2017-06-07] MEDS ORDERED: NICORETTE4 M2 BUCCAL (11:29)
[2017-06-07] MEDS ORDERED: PROMETHAZINE12.5 M1 PO (11:29)
== END 2017-06-07 12:25 | disposition home or self-care (01) ==
LOC: ED 17:07 → CCU 17:09 → MS 06-06 18:15
PROVIDERS: ADMIT Internal Medicine
DX: E10.10 Type 1 diabetes mellitus with ketoacidosis without coma (principal); I10 Essential (primary) hypertension; F17.200 Nicotine dependence, unspecified, uncomplicated; F32.9 Major depressive disorder, single episode, unspecified; R61 Generalized hyperhidrosis; N91.1 Secondary amenorrhea; S80.12XA Contusion of left lower leg, initial encounter; S80.11XA Contusion of right lower leg, initial encounter; S05.11XA Contusion of eyeball and orbital tissues, right eye, initial encounter; S60.221A Contusion of right hand, initial encounter; S50.11XA Contusion of right forearm, initial encounter; W19.XXXA Unspecified fall, initial encounter; W22.09XA Striking against other stationary object, initial encounter; Z91.040 Latex allergy status; Z79.899 Other long term (current) drug therapy
CPT/HCPCS: 36415; 71010; 73090; 73130; 80048; 80053; 81001; 82010; 82800; 83036; 83605; 83690; 84439; 84443; 84703; 85025; 96361; 96374; 96375; 96376; 99291; G0378; J0780; J2405; J2550; J2765; J7030; J7042; J7120

== ENCOUNTER 2017-06-12 12:22 | Emergency (ER) | payer OTHER ==
[~2017-06-12] VITALS: Ht 180.3 cm; Wt 76.3 kg
[~2017-06-12 12:22] MED LIST changes: +COZAAR25 MG PO; +PROMETHAZINE12.5 M1 PO
== END 2017-06-12 15:11 | disposition home or self-care (01) ==
LOC: ED 12:22
DX: S00.83XA Contusion of other part of head, initial encounter (principal); S00.12XA Contusion of left eyelid and periocular area, initial encounter; E10.649 Type 1 diabetes mellitus with hypoglycemia without coma; I10 Essential (primary) hypertension; F17.200 Nicotine dependence, unspecified, uncomplicated; Z98.890 Other specified postprocedural states; Z98.818 Other dental procedure status; Z79.4 Long term (current) use of insulin; Z91.040 Latex allergy status; X58.XXXA Exposure to other specified factors, initial encounter
CPT/HCPCS: 70450; 80053; 81001; 84703; 85025; 99284

== ENCOUNTER 2017-06-23 19:19 | Observation (INO) | payer BC, OTHER ==
[~2017-06-23] VITALS: Ht 172.7 cm; Wt 73.7 kg
--- OUTSIDE RECORDS SUMMARY | ~2017-06-23 | XMS | Clinical Summary ---
Demographics + + + | Address | [address] [place] [address] Rd | | | [place] [address] | + + + | Home Phone | | + + + | Preferred Language | Unknown | + + + | Marital Status | Single | + + + | Alevism Affiliation | NON | + + + | Race | White | + + + | Ethnic Group | Not or | + + + Author + + + | Author | [facility] | + + + | Organization | [facility] | + + + | Address | Unknown | + + + | Phone | Unavailable | + + + Support + + +---------+ + | Name | Relationship | Address | Phone | + + +---------+ + | Rustam Orrin | ECON | Unknown | Unavailable | + + +---------+ + Care Team Providers + +------+ + | Care Linoleum Mechanic Name | Role | Phone | + +------+ + | No Pcp Per Patient | PP | Unavailable | + +------+ + Source Comments BARRY is fully live on both [facility] and [facility]Patient.[facility] Allergies No Known Allergies Current Medications + [...] tablet by | 30 | 0 | 01/ | | Activ | | 10 mg [...] | + + + | Alcohol dependence (HCC) | 08/24/2014 | + + + | Vaginal yeast infection | 08/24/2014 | + + + | DKA (diabetic ketoacidoses) (HCC) | 08/22/2014 | + + + Social [...]
--- NOTE | 2017-06-23 22:35 | NUR ---
PT ARRIVED TO CCU FROM ER. PT ABLE TO TRANSFER TO BED FROM [facility] WITH ONE PERSON STANDBY ASSIST. PT ABLE TO FOLLOW DIRECTIONS. PT DENIES PAIN AND SOB AT THIS TIME. TWO IV SITES INTACT, FLUIDS INFUSING EASILY, FLUSH INFUSES EASILY IN LEFT HAND SITE. PT REQUESTS TO SIT ON BEDSIDE COMMODE, UNABLE TO VOID, THEN BACK TO BED.
--- NOTE | 2017-06-23 23:16 | NUR ---
PT SITTING ON BEDSIDE COMMODE AT THIS TIME. PT DENIES PAIN AND SOB. C/O NAUSEA.
--- NOTE | 2017-06-24 00:30 | NUR ---
PT UP TO BEDSIDE COMMODE, ABLE TO VOID 335 ML, THEN BACK TO BED.
--- NOTE | 2017-06-24 01:15 | NUR ---
CALLED TO UPDATE ON PT BLOOD GLUCOSE OF 167, ORDER GIVEN TO CHANGE IV FLUIDS TO D5 NS WITH 20 OF K WHEN NS BOLUS FINISHED.
--- NOTE | 2017-06-24 01:35 | NUR ---
CALLED TO UPDATE ON PT LABS. ORDER GIVEN TO CHANGE FLUIDS FROM D5 NS WITH 20 OF K TO D5 NS.
--- NOTE | 2017-06-24 03:06 | NUR ---
PT STATES SHE IS FEELING "BETTER", DENIES NAUSEA AT THIS TIME.
--- NOTE | 2017-06-24 04:19 | NUR ---
BOTH IV SITES INTACT, NO REDNESS OR SWELLING NOTED, FLUIDS INFUSING EASILY. PT SLEEPING THROUGH ASSESSMENT, APPEARS COMFORTABLE. VITALS WNL. PT APPEARS TO BE WARM SHE HAS KICKED OFF HER BLANKETS. RESP EVEN AND UNLABORED. PT HAS HAD NO EMISIS SINCE BEING IN ICU.
--- NOTE | 2017-06-24 08:03 | NUR ---
LAB CALLED WITH C02 CRITICAL VALUE OF 8. DR. MELO NOTIFIED. VITAL SIGNS AND ASSESSMENT COMPLETED. PT SLEEPING BUT AWAKENS TO VOICE, PT IS SLIGHTLY CONFUSED WHEN AWAKENED. ACCU CHECK 194, INSULING GTT REMAINS AT 2.8 UNITS/HR.
--- NOTE | 2017-06-24 09:15 | NUR ---
ACCU CHECK 191, NO CHANGE IN INSULIN GTT, REMAINS AT 2.8 UNITS/HR.
--- NOTE | 2017-06-24 10:09 | NUR ---
22G IV STARTED IN LEFT UPPER ARM WITHOUT PROBLEMS. INSULING GTT INFUSING AT 2.8 UNITS/HR. LAB HERE FOR 1000 LAB DRAW. ACCU CHECK 156. PT DRINKING WATER AND DIET SODA WITHOUT PROBLEMS. PT NOW ON SUGAR FREE CLEAR LIQ DIET.
--- NOTE | 2017-06-24 10:53 | NUR ---
ACCU CHECK 175, NO CHANGE IN INSULIN GTT RATE, REMAINS AT 2.8 UNITS/HR.
--- NOTE | 2017-06-24 12:06 | NUR ---
LAB HERE FOR LAB DRAW DUE TO NOT ENOUGH BLOOD DRAWN AT 1000 A.M. MACHINE UNABLE TO RUN BMP. ACCU CHECK 175 INSULIN GTT DECREASED TO 2.4 UNITS/HR.
--- NOTE | 2017-06-24 13:08 | NUR ---
ACCU CHECK 116, INSULING GTT DECREASED TO 0.6 UNITS/HR. PT AWAKE AND EATING JELLO, WATER AND DIET SODA.
--- NOTE | 2017-06-24 15:18 | NUR ---
INSULIN DRIP TITRATED BACK TO 2.4 DUE TO BLOOD SUGAR OF 176
--- NOTE | 2017-06-24 16:52 | NUR ---
ASSESSMENT COMPLETED, PT SLEEPING ON LEFT SIDE BUT AWAKENS TO VOICE, NO C/O AT THIS TIME. IV FLUIDS CHANGED TO D5 NS + 20 MEQ OF KCL AT 200 MLS/HR.
--- NOTE | 2017-06-24 17:01 | NUR ---
ACCU CHECK 194, INSULIN GTT DECREASED TO 2.8 UNITS/HR.
--- NOTE | 2017-06-24 17:57 | NUR ---
ACCU CHECK 178, INSULIN DECREASED TO 2.4 UNITS/HR.
--- NOTE | 2017-06-24 20:23 | NUR ---
BOTH IV SITES IN HANDS DC'D. RT THUMB IV SITE INFILTRATED, PT DENIES PAIN WITH THIS, TIP OF CATH INTACT. IV SITE IN LEFT HAND NO LONGER FLUSHING, DC'D WNL, TIP OF CATH INTACT, PT DENIES PIAN AT THIS SITE WELL. PT ALERT AND ORIENTED X4. VITALS WNL. PT COOPERATIVE AND POLITE, NO LONGER FLAT. PT APPERS TO BE FEELING BETTER AND STATES THAT SHE IS.
--- NOTE | 2017-06-24 21:45 | NUR ---
TORRIE SANDOVAL FROM ER WAS ABLE TO START A 22 G IV IN PT LEFT WRIST. PT YVETTE WELL.
--- NOTE | 2017-06-24 22:45 | NUR ---
PT SLEEPING SOUNDLY, NOT INTERESTED IN EATING AT THIS TIME.
--- NOTE | 2017-06-24 23:15 | NUR ---
INSULIN DRIP AND IV FLUIDS DC'D AT THIS TIME ACCORDING TO 'S ORDERS. IV SITES SALINE LOCKED.
--- NOTE | 2017-06-24 23:30 | NUR ---
PT UP TO BEDSIDE COMMODE, APPEARS TO HAVE NORMAL COORDINATION. PT COOPERATIVE AND POLITE. ALERT AND ORIENTED X4. VITALS WNL, HR ELEVATES SLIGHTLY WITH MOVEMENT.
--- NOTE | 2017-06-25 02:12 | NUR ---
PT SLEEPING SOUNDLY THROUGH BLOOD GLUCOSE CHECK AND INSULIN ADMINISTRATION. VITALS WNL. RESP EVEN AND UNLABORED. CALL LIGHT WITHIN REACH, BED IN LOW POSITION.
--- NOTE | 2017-06-25 04:20 | NUR ---
CALLED TO UPDATE ON PT ELEVATED BP. ORDER GIVEN TO RESUME HOME MEDICAITON OF 25 MG PO COZAR. BP IS 172/111 (125).
--- NOTE | 2017-06-25 04:43 | NUR ---
PT C/O "SOME" NAUSEA, 10 MG COMPAZINE GIVEN IV.
--- NOTE | 2017-06-25 06:05 | NUR ---
PT SLEEPING SOUNDLY, RESP EVEN AND UNLABORED. PT APPEARS COMFORTABLE. HR WNL.
--- NOTE | 2017-06-25 09:14 | NUR ---
DR. MELO IN TO ASSESS PT AND TALK WITH HER CONCERNING HER DISCHARGE HOME. PT EATING BREAKFAST AT THIS TIME.
--- NOTE | 2017-06-25 10:35 | NUR ---
PT ATE SMALL AMT OF ADA BREAKFAST, REQUIRES 1 UNIT OF NOVALOG, ACCU CHECK THIS A.M. 250 REQUIRES 3 UNITS NOVALOG AND LEVAMIR 12 UNITS GIVEN SUBQ. PT RESTING IN BED WATCHING TV.
== END 2017-06-25 11:43 | disposition home or self-care (01) ==
LOC: ED 19:19 → CCU 19:21 → ED 22:25 → CCU 22:25 → ED 22:40 → CCU 06-25 11:43
PROVIDERS: ADMIT Internal Medicine
DX: E10.10 Type 1 diabetes mellitus with ketoacidosis without coma (principal); I10 Essential (primary) hypertension; F17.200 Nicotine dependence, unspecified, uncomplicated; F15.10 Other stimulant abuse, uncomplicated; F39 Unspecified mood [affective] disorder; Z79.899 Other long term (current) drug therapy; Z23 Encounter for immunization; Z91.040 Latex allergy status
CPT/HCPCS: 36415; 71020; 80048; 80053; 81001; 82010; 82800; 83690; 83735; 84703; 85025; 90674; 96361; 96365; 96372; 96374; 96375; 96376; 99285; G0008; G0378; J0780; J1650; J2405; J2550; J7030; J7042

== ENCOUNTER 2017-08-16 00:34 | Inpatient (IN) | payer BC, OTHER ==
[~2017-08-16] VITALS: Ht 172.7 cm; Wt 68.8 kg
--- OUTSIDE RECORDS SUMMARY | ~2017-08-16 | XMS | Clinical Summary ---
Demographics + + + | Address | [address] [place] [address] Rd | | | [place] [address] | + + + | Home Phone | | + + + | Preferred Language | Unknown | + + + | Marital Status | Single | + + + | Yazidism Affiliation | NON | + + + [...] Team Providers + +------+ + | Care Plate Gauger Name | Role | Phone | + +------+ + | No Pcp Per Patient | PP | Unavailable | + +------+ + Source Comments BARRY is fully live on both [facility] and [facility] Allergies No Known Allergies Current Medications + [...] + + | Alcohol dependence ([facility]) | 08/24/2014 | + + + | Vaginal yeast infection | 08/24/2014 | + + + | DKA (diabetic ketoacidoses) ([facility]) | 08/22/2014 | + + + Social [...]
--- OUTSIDE RECORDS SUMMARY | 2017-08-16 01:24 | XMS | Clinical Summary ---
Demographics + + + | Address | [address] [place] [address] Rd | | | [place] [address] | + + + | Home Phone | | + + + | Preferred Language | Unknown | + + + | Marital Status | Single | + + + | Scientologist Affiliation | NON | + + + | Race | White | + + + | Ethnic Group | Not or | + + + Author + + + | Author | [facility] | + + + | Organization | [facility] | + + + | Address | Unknown | + + + | Phone | Unavailable | + + + Support +------+ +---------+ + | Name | Relationship | Address | Phone | +------+ +---------+ + ECON | Unknown | Unavailable | +------+ +---------+ + Care Team Providers + +------+ + | Care Dye Stand Loader Name | Role | Phone | + +------+ + | No Pcp Per Patient | PP | Unavailable | + +------+ + Source Comments BARRY is fully live on both [facility] Amb[facility] and [facility] InPatient.[facility] Allergies No Known Allergies Current Medications + + +---------+---------+------+------+-------+ | Prescription | Sig. | Disp. | Refills | Star | End | Statu | | | | | | t | Date | s | | | | | | Date | | | + + +---------+---------+------+------+-------+ | | Take 1 tablet by | | | | | Activ | | norgestimate-ethinyl | mouth once daily. | | | | | e | | estradiol 0.25-35 | | | | | | | | mg-mcg oral tablet | | | | | | | + + +---------+---------+------+------+-------+ | potassium | Take 25 mEq by mouth | | | | | Activ | | bicarbonate-citric | two times daily. | | | | | e | | acid 25 mEq oral | | | | | | | | tablet, effervescent | | | | | | | + + +---------+---------+------+------+-------+ | magnesium oxide | Take 800 mg by mouth | | | | | Activ | | 400 mg oral tablet | two times daily. | | | | | e | + + +---------+---------+------+------+-------+ | oxyCODONE, | Take 1 tablet by | 20 | 0 | 01/0 | | Activ | | immediate release, 5 | mouth every six | tablet | | 5/20 | | e | | mg oral tablet | hours as needed for | | | 15 | | | | | moderate pain or | | | | | | | | severe pain. | | | | | | + + +---------+---------+------+------+-------+ | fluconazole 150 mg | Take 1 tablet by | 2 | 0 | 01/0 | | Activ | | oral tablet | mouth every | tablet | | 5/20 | | e | | | seventy-two hours. | | | 15 | | | + + +---------+---------+------+------+-------+ | insulin NPH | Inject 14 Units | 10 mL | prn | 01/0 | | Activ | | (HUMULIN N) 100 | under the skin | | | 5/20 | | e | | unit/mL subcutaneous | (SUBC) two times | | | 15 | | | | | daily. Indications: | | | | | | | suspensionIndication | TYPE 1 DIABETES | | | | | | | s: type 1 diabetes | MELLITUS | | | | | | | mellitus | | | | | | | + + +---------+---------+------+------+-------+ | insulin regular | Inject 8 Units under | 10 mL | 3 | 01/0 | | Activ | | (HUMULIN R) 100 | the skin (SUBC) | | | 5/20 | | e | | unit/mL injection | three times daily | | | 15 | | | | solutionIndications: | before meals. Inject | | | | | | | type 1 diabetes | 30 minutes before | | | | | | | mellitus | meal. Indications: | | | | | | | | TYPE 1 DIABETES | | | | | | | | MELLITUS | | | | | | + + +---------+---------+------+------+-------+ | prochlorperazine | Take 1 tablet by | 30 | 0 | 01/0 | | Activ | | 10 mg oral | mouth every six | tablet | | 5/20 | | e | | tabletIndications: | hours as needed for | | | 15 | | | | Nausea and Vomiting | nausea/vomiting. Max | | | | | | | | dose: 40 mg/day | | | | | | | | Indications: NAUSEA | | | | | | | | AND VOMITING | | | | | | + + +---------+---------+------+------+-------+ Active Problems + + + | Problem | Noted Date | + + + | Type 1 diabetes mellitus (HCC) | 08/24/2014 | + + + | Acute pancreatitis | 08/24/2014 | + + + | Alcohol dependence ([facility]) | 08/24/2014 | + + + | Vaginal yeast infection | 08/24/2014 | + + + | DKA (diabetic ketoacidoses) ([facility]) | 08/22/2014 | + + + Social History + +-------+ +--------+------+ | Tobacco Use | Types | Packs/Day | Years | Date | | | | | Used | | + +-------+ +--------+------+ | Never Assessed | | | | | + +-------+ +--------+------+ + + + | Sex Assigned at | Date Recorded | | | | + + + | Not on file | | + + + Last Filed Vital Signs + + + + | Vital Sign | Reading | Time Taken | + + + + | Blood Pressure | 128/102 | 08/25/2014 8:16 AM PST | + + + + | Pulse | 88 | 08/25/2014 8:16 AM PST | + + + + | Temperature | 36.5 C (97.7 F) | 08/25/2014 8:16 AM PST | + + + + | Respiratory Rate | 16 | 08/25/2014 8:16 AM PST | + + + + | Oxygen Saturation | 98% | 08/25/2014 8:16 AM PST | + + + + | Inhaled Oxygen | - | - | | Concentration | | | + + + + | Weight | 75.8 kg (167 lb 1.7 | 08/24/2014 8:34 PM PST | | | oz) | | + + + + | Height | 172.7 cm (5' 8") | 08/22/2014 3:23 PM PST | + + + + | Body Mass Index | 25.41 | 08/24/2014 8:34 PM PST | + + + + Plan of Treatment Not on file Results Not on filefrom Last 3 Months
--- NOTE | 2017-08-16 03:18 | NUR ---
ADMIT TO CCU PER STRETCHER. PT DROWSY AND OCC REQUIRES TO BE ASKED A QUESTION MORE THAN ONCE BEFORE SHE WILL ANSWER. BS 216, INSULIN GTT TO 1.7 UNITS/HR. DENIES NEED TO VOID. CONT TO BE NAUSEATED, NO EMESIS.
--- NOTE | 2017-08-16 04:16 | NUR ---
BS 214, INSULIN GTT TO 1.4 UNITS/HR. ASKING FOR SIP ICE WATER, THEN BACK TO SLEEP.
--- NOTE | 2017-08-16 04:37 | NUR ---
INSULIN TO 2.8 UNITS/HR PER PROTOCOL.
--- NOTE | 2017-08-16 06:35 | NUR ---
PT C/O NAUXEA AT 0525, GIVEN 12.5 PHENERGEN IV. DENIES NAUSEA NOW. UP TO BSC TO VOID. YVETTE BEING UP WELL.
--- NOTE | 2017-08-16 06:56 | NUR ---
BLOOD SUGER 234, INSULIN GTT INC TO 5.1 UNITS PER HR.
--- NOTE | 2017-08-16 07:37 | NUR ---
PATIENT RESTING IN BED UPON INITIAL ASSESSMENT. IVF CHANGED TO D5 NS AT 200 ML/HR. INSULIN GTT INFUSING AT 5.1 UNITS/HR. LAST CBG 234. PT REQUESTING MORE ICE WATER AND DIET 7UP. PT AND RN DISCUSSED PLAN FOR THE DAY. VITALS AND ASSESSMENT COMPLETE. CONTINUE TO MONITOR.
--- NOTE | 2017-08-16 08:15 | NUR ---
INSULIN GTT TURNED DOWN TO 4.2 UNITS/HR. IVF CONTINUE AT 200 ML/HR. PT RESTING AT THIS TIME.
--- NOTE | 2017-08-16 09:46 | NUR ---
PATIENT JUST HAD HER SECOND EMESIS THIS AM OF AROUND 700 ML OF CLEAR FLUID. PATIENT INSTRUCTED TO HOLD OFF ON DRINKING ANY MORE FLUIDS AT THIS POINT. PT AGREEABLE. LAST CBG 196 AND INSULIN GTT INFUSING AT 4.2 UNITS/HR AT THIS TIME. IVF CONTINUE AT 200 ML/HR. DR. MELO UPDATED ON PT'S EMESIS. PATIENT GIVEN 5 MG IV COMPAZINE WELL. PT WAS GIVEN ZOFRAN EARLIER THIS AM. PRN PHENERGAN ALSO AVAILABLE.
--- NOTE | 2017-08-16 10:43 | NUR ---
1000 LABS DRAWN FROM NEW IV SITE PLACED IN RIGHT AC. PT TOLERATED WELL. PT SOMEWHAT DROWSY AFTER COMPAZINE MEDICATION THAT WAS GIVEN. TEMP 98.5 ORAL AT THIS TIME.
--- NOTE | 2017-08-16 12:02 | NUR ---
CBG AT THIS TIME IS 190. PT REMAINS ON INSULIN GTT AT 4.2 UNITS/HR. PT RESTING. ASSESSMENT UNCHANGED FROM PREVIOUS ASSESSMENT TODAY. CONTINUE TO MONITOR.
--- NOTE | 2017-08-16 12:37 | NUR ---
PATIENT REMAINS SLEEPING AT THIS TIME. NO FURTHER NAUSEA SINCE EARLIER THIS AM. LAST CBG 190. INSULIN GTT AT 4.2 UNITS/HR. NEXT LAB DRAWN AT 1500 TODAY. CONTINUE TO MONITOR.
--- NOTE | 2017-08-16 13:13 | NUR ---
PATIENT CBG 166 AT 1300. INSULIN GTT TURNED DOWN TO 3.6 UNITS/HR. PT NOW NAUSEOUS AGAIN AND VOMITING, BUT LESS FLUID TO VOMIT SINCE SHE HAS NOT BEEN EATING OR DRINKING ANYTHING. PT IS STILL YET TO VOID TODAY FOR THIS RN. PT HAS BEEN ASKED SEVERAL TIMES IF SHE NEEDS TO VOID BUT DENIES. CONTINUE TO MONITOR.
--- NOTE | 2017-08-16 15:12 | NUR ---
LAB IN ROOM DRAWING LABS AT THIS TIME. CBG 157 AT THIS TIME. INSULIN GTT TO REMAIN AT 3.6 UNITS/HR. PT SLEEPING AT THIS TIME. CONTINUE TO MONITOR.
--- NOTE | 2017-08-16 15:13 | NUR ---
CORRECTION FROM LAST NOTE, CBG WAS 157 AND INSULIN GTT IS NOW INFUSING AT 2 UNITS/HR PER INSULIN GTT PROTOCOL.
--- NOTE | 2017-08-16 16:47 | NUR ---
PATIENT TO BE TRANSFERRED TO MED/SURG. PT'S LABS DISCUSSED WITH DR. MELO. PATIENT REMAINS ON INSULIN GTT AT 0.9 UNITS/HR BUT WILL BE TAKEN OFF INSULIN GTT AFTER 12 UNITS OF LEVEMIR HAS BEEN GIVEN. PT GIVEN LEVEMIR AROUND 1644. PATIENT ABLE TO TAKE PO PILLS WITHOUT DIFFICULTY, BUT STILL NPO. PT GIVEN JUST A SIP OF WATER TO TAKE PILLLS WITH. PT UPDATED ON PLAN OF CARE. NO FURTHER REQUESTS AT THIS TIME.
--- NOTE | 2017-08-16 17:01 | NUR ---
INSULIN GTT TURNED OFF AT THIS TIME.
--- NOTE | 2017-08-16 17:35 | NUR ---
REPORT GIVEN TO TORRIE GARCÍA AND PATIENT TAKEN OVER TO 113 IN THE BED. ALL PERSONAL BELONGINGS TAKEN WITH PATIENT.
--- NOTE | 2017-08-16 18:23 | NUR ---
PT APPEARS TO BE RESTING COMFORTABLY. LAYING ON SIDE. IVF INFUSING AT 200
--- NOTE | 2017-08-16 19:51 | NUR ---
PATIENT IN BED. WHITEBOARD UPDATED, ROOM TIDIED. GREEN SHEET CHANGED OUT. PATIENT STATES SHE DOES NOT NEED ANYTHING AT THIS TIME.
--- NOTE | 2017-08-16 21:24 | NUR ---
pt appeared to be sleeping when entering room. woke to gentle shake and rn voice. pt alert and orientd x4. pt is diaphoretic, turned down heat in room. pt reports she feels "fine" but is just "tired." no complaints of dizziness. no nausea at this time. turned down heat in room from 76 degrees to 74 degrees. pt's temperature is wnl. pt has no further needs at this time. call light in reach.
--- NOTE | 2017-08-16 22:18 | NUR ---
patient refuses to try and get up to the bathroom. she states she does not feel like she has to go.
--- NOTE | 2017-08-16 22:43 | NUR ---
PT LAYING IN BED, APPEARED TO BE SLEEPING WHEN ENTERING ROOM. WOKE TO RN VOICE. PT DENIES URGE TO VOID. BLADDER SCANNED PT, 450MLS IN BLADDER. ENCOURAGED PT TO GET UP TO BATHROOM AND ATTEMPT VOID. PT VOIDED 250MLS IN HAT AND MISSED SOME OF THE VOID INTO THE TOILET. PT BACK TO BED. NO FURTHER NEEDS. CALL LIGHT IN REACH.
--- NOTE | 2017-08-16 23:07 | NUR ---
RN BLADDER SCANNED PATIENT
--- NOTE | 2017-08-17 00:11 | NUR ---
PT APPEARS TO BE SLEEPING. LIGHTS AND TV OFF IN ROOM.
--- NOTE | 2017-08-17 02:36 | NUR ---
NURSE IN ROOM
--- NOTE | 2017-08-17 02:45 | NUR ---
PT ASLEEP WHEN ENTERING ROOM. WOKE EASILY TO VOICE. DENIES NAUSEA AND PAIN AT THIS TIME. CALL LIGHT IN REACH. NO FURTHER NEEDS.
--- NOTE | 2017-08-17 04:14 | NUR ---
PT APPEARS TO BE SLEEPING. RR WNL AND UNLABORED.
--- NOTE | 2017-08-17 04:57 | NUR ---
NURSE IN ROOM
--- NOTE | 2017-08-17 05:11 | NUR ---
PT SLEPT MAJORITY OF SHIFT. FLAT AFFECT, BUT SHE IS POLITE. ORIENTED X4. STANDBY ASSIST. BS AND SS Q4. PT DENIED NAUSEA ALL SHIFT AND NO PAIN. NO FEVERS.
--- NOTE | 2017-08-17 05:46 | NUR ---
pt up to bathroom to void. standby assist, tolerated well. no further needs. call light in reach.
--- NOTE | 2017-08-17 07:17 | NUR ---
PT LAYING ON SIDE IN BED. RESPONSIVE AND FRIENDLY. SHE SAID SHE IS FEELING BETTER, HAD PRAYER WITH PT, NEED TO HELP HER WITH A POSITIVE PLAN FOR HER LIFE
--- NOTE | 2017-08-17 07:27 | NUR ---
RECIEVED REPORT FROM SALES AUDIT CLERK NURSE. PATIENT SLEEPING. IVF INFUSING W/O DIFFICULTY. CALL LIGHT IN REACH.
--- NOTE | 2017-08-17 08:51 | NUR ---
PATIENT RESTING IN BED. TOILETING OFFERED, PATIENT REFUSED AT THIS TIME, WILL TRY AGAIN BEFORE 10 AM. LUNGS ARE CLEAR, HR REGULAR, NO EDEMA, NO C/O PAIN OR NAUSEA. VS OBTAINED. ICE CHIPS DELIVERED. PATIENT DENIES FURTHER NEEDS. CALL LIGHT IN REACH. EDUCATED PATIENT ABOUT STRICT OUTPUT.
--- NOTE | 2017-08-17 10:00 | NUR ---
PT UP TO BATHROOM TO ATTEMPT TO VOID, UNABLE TO VOIC. RN NOTIFIED.
--- NOTE | 2017-08-17 10:05 | NUR ---
NEW BAG OF IV FLUIDS HUNG AT THIS TIME, PATIENT DENIES OTHER NEEDS AT THIS TIME
--- NOTE | 2017-08-17 10:18 | NUR ---
PATIENT'S BLOOD GLUCOSE WAS 241, 4 UNITS OF NOVOLOG GIVEN SQ IN THE LEFT ARM. PATIENT DENIES ANY PAIN OR OTHER NEEDS AT THIS TIME
--- NOTE | 2017-08-17 11:08 | NUR ---
PATIENT RESTING IN BED. STATES SHE IS HUNGRY AND WOULD LIKE TO EAT. PATIENT DENIES NAUSEA OR PAIN. PATIENT UP TO BATHROOM INDEPENDENTLY. VOIDED. DENIES FURTHER NEEDS. CALL LIGHT IN REACH.
[2017-08-17] MEDS ORDERED: LOSARTAN POTASS50 MG PO (11:14)
--- NOTE | 2017-08-17 11:55 | NUR ---
PATIENT RESTING IN BED. SET UP CHAIR FOR HER TO SIT IN BUT SHE REFUSES AT THIS POINT. ALSO OFFERED TO SET PATIENT UP WITH A SHOWER. DELIVERED JELLO AND WATER PITCHER. IVF INFUSING W/O DIFFICULTY. PATIENT DENIES FURTHER NEEDS.
--- NOTE | 2017-08-17 13:48 | NUR ---
PATIENT UP TO BATHROOM, VOIDED, BACK TO BED. ENCOURAGED PATIENT TO AMBULATE HALLWAY AND TAKE A SHOWER. AT THE MOMENT SHE IS ENJOYING A CUP OF BROTH, I TOLD HER TO USE HER CALL LIGHT WHEN SHE IS READY FOR A SHOWER/WALK. PATIENT IS TOLERATING CLEAR LIQUIDS. PATIENT DENIES PAIN AND NAUSEA. WATER PITCHER FILLED. CALL LIGHT IN REACH.
--- NOTE | 2017-08-17 14:13 | NUR ---
PATIENT RESTING IN BED. ONCE AGAIN I ENCOURAGED AMBULATING HALLWAYS AND A SHOWER. PATIENT STATES SHE WOULD LIKE TO WAIT UNTIL TOMORROW TO SHOWER. I SET THE CHAIR UP FOR HER SO THAT SHE MAY SIT UPRIGHT IF SHE CHOOSES. PATIENT HAS BEEN IN BED ALL DAY. LUNGS ARE CLEAR IN UPPERS AND DIMINISHED IN LOWER LOBES. HR REGULAR, NO EDEMA. BS ACTIVE. PATIENT HAS NOT HAD A BM FOR A COUPLE DAYS, PATIENT STATES THAT IS NORMAL FOR HER WHEN SHE COMES TO THE HOSPITAL. PATIENT DENIES PAIN AND NAUSEA. TOLERATING CLEAR LIQUIDS WELL. BLOOD SUGAR OBTAINED. ADMINISTERED INSULIN PER SLIDING SCALE. IVF INFUSING W/O DIFFICULTY. PATIENT DENIES FURTHER NEEDS.
--- NOTE | 2017-08-17 15:11 | NUR ---
NEW BAG OF IV FLUID HUNG, PATIENT IS RESTING WITH EYES CLOSED ON HER LEFT SIDE.
--- NOTE | 2017-08-17 16:10 | NUR ---
D/C IVF. ORDERED PATIENT A FULL LIQUID TRAY. DELIVERED DIET SODA AND JELLO. PATIENT UP TO BATHROOM INDEPENDENTLY TO VOID. PATIENT DENIES FURTHER NEEDS. CALL LIGHT IN REACH.
--- NOTE | 2017-08-17 17:01 | NUR ---
BLOOD SUGAR OBTAINED. CONTACTED DIETARY TO FIND OUT HOW MANY CARBS SHE WILL HAVE WITH DINNER. DIETARY STATES SHE WILL HAVE 30 CARBS. ADMINISTERED INSULIN ACCORDINGLY. PATIENT RESTING IN BED. DENIES NEEDS AT THIS TIME. CALL LIGHT IN REACH.
--- NOTE | 2017-08-17 18:43 | NUR ---
PATIENT STATES SHE IS STILL HUNGRY. NOTIFIED MD WE WILL NEED ANOTHER INSULIN ORDER. DIETARY CONFIRMED 52G OF CARBS ON TRAY. ADMINISTERED INSULIN ACCORDINGLY. MEAL TRAY SERVED, PATIENT DENIES FURTHER NEEDS.
--- NOTE | 2017-08-17 19:10 | NUR ---
BEDSIDE REPORT RECEIVED FROM TORRIE EASLEY. PT AWAKE, SITTING UP IN BED, TALKING ON PHONE. PT HAS NO REQUESTS AT THIS TIME. WILL CONTINUE TO MONITOR. CALL LIGHT IN REACH.
--- NOTE | 2017-08-17 20:42 | NUR ---
CBG 117 AT THIS TIME. PT DENIES PAIN, DENIES NAUSEA. REQUESTING SOUP, STATING SHES HUNGRY. CALL LIGHT IN REACH.
--- NOTE | 2017-08-17 21:01 | NUR ---
PT ASSESSMENT COMPLETE. PT LUNGS CLEAR THROUGHOUT ALL LOBES. CSM INTACT. ABDOMEN SOFT, NON-TENDER WITH DEEP PALPATION, BOWEL TONES ACTIVE X 4. PT DENIES NAUSEA. PT GIVEN CREAM OF CHICKEN SOUP, SUGAR FREE JELLO, AND ICE WATER. PT GIVEN TOOTHBRUSH, MOUTHWASH, WASH CLOTHES, NO ADDITIONAL REQUESTS. CALL LIGHT GIVEN TO PT.
--- NOTE | 2017-08-17 22:14 | NUR ---
VITALS AND I&OS DONE. PT HAS NO CONCERNS OR NEEDS AT THIS TIME. CALL LIGHT AND BEDSIDE TABLE IS WITHIN REACH.
--- NOTE | 2017-08-17 23:21 | NUR ---
PT LYING ON LEFT SIDE, EYES CLOSED, BREATHING VISIBLE NON-LABORED, LIGHTS OFF IN ROOM. DOES NOT AWAKEN TO RN ENTERING ROOM.
--- NOTE | 2017-08-18 00:34 | NUR ---
PT SLEEPING, RR 18, LIGHTS OFF IN ROOM, CALL LIGHT IN REACH.
--- NOTE | 2017-08-18 02:00 | NUR ---
PT ASSESSMENT COMPLETE. PT LYING IN BED, AWAKENS TO VOICE WHEN RN ENTERS ROOM. PT REQUESTED ICE WATER. BOWEL TONES ACTIVE, ABD NON-TENDER. LUNGS SOUND CLEAR THROUGHOUT ALL LOBES. PT HAS CALL LIGHT IN REACH. NO ADDITIONAL REQUESTS AT THIS TIME.
--- NOTE | 2017-08-18 04:29 | NUR ---
CHECED ON PT, PT SLEEPING ON LEFT SIDE, EYES CLOSED, VISIBLE CHEST RISE, CALL LIGHT IN REACH.
--- NOTE | 2017-08-18 04:49 | NUR ---
PT HAS SLEPT MOST OF SHIFT, INDEPENDENT IN ROOM. CONTINUES TO HAVE APPETITE, TOLERATING FULL LIQUID DIET WELL, DENIES NAUSEA, DENIES PAIN. ABDOMEN NON-TENDER, BOWEL TONES ACTIVE. IV SITES FLUSH WELL, WNL.
--- NOTE | 2017-08-18 05:56 | NUR ---
VITALS AND I&OS DONE. PER PT REQUEST I GOT HER SUGAR FREE JELLO AND DIET SPRITE. BEDSIDE TABLE AND CALL LIGHT WITHIN REACH.
--- NOTE | 2017-08-18 06:27 | NUR ---
PT APPEARS TO BE SLEEPING, EYES CLOSED, BREATHING NON-LABORED. CALL LIGHT IN REACH.
--- NOTE | 2017-08-18 08:18 | NUR ---
PATIENT SAID SHE WILL TAKE HER SHOWER LATER. SET UP SHOWER. PATIENT IS SLEEPING NOW.
--- NOTE | 2017-08-18 09:00 | NUR ---
patient sitting up in bed. patient tolerated 25 percent of full liquid breakfast. new order for ada diet ( regular food). patient stating she would like to order some more breakfast. patient stating no pain. blood sugar 150. gave 2 units per ss and 2 units based on carbs that were ate ( a total of 33 carbs = 2 units of insulin. ) vitals taken. morning medication given.
--- NOTE | 2017-08-18 09:43 | NUR ---
CALLED PATIENTS PCP OFFICE CHW KHUSHBU YESTERDAY TO ALERT HER TO PATIENTS HOMELESS STATE AND HOSPITALIZATION. TODAY CHARGE NURSE ON MEDICAL FLOOR STATES THAT KHUSHBU DID COME SEE PATIENT YESTERDAY.
--- NOTE | 2017-08-18 10:39 | NUR ---
patient assisted to the shower. linen changed. patient stating no pain. tolerated ada diet. no new insulin due to being less than 15carbs on tray.
--- NOTE | 2017-08-18 10:43 | NUR ---
CHECK ON PATIENT SHE IS JUST GETTING OUT OF THE SHOWER. NURSE CHANGED HER LINENS.
--- NOTE | 2017-08-18 12:26 | NUR ---
patient had financal aid group sales representative in room. bs 272. patient recieved 6 units per ss. 4 units per her 61 carb lunch that she tolerated 100 percent of. patient asking if she was going to get to go home today. awaiting rounding with dr. pettit.
--- NOTE | 2017-08-18 13:05 | NUR ---
patient resting in chair. no other needs at this time. will continue to monitor.
[2017-08-18] MEDS ORDERED: NICOTINE1 EAC1 TD (13:22)
--- NOTE | 2017-08-18 13:56 | NUR ---
PER RN, PT'S IV DC'D BY THIS MECHANICAL ASSEMBLER. PT INFORMED THAT RN WILL BE IN WITH HER PAPERWORK SHORTLY.
--- NOTE | 2017-08-18 14:01 | NUR ---
PT SEEMED TO BE FEELING BETTER TODAY. SHE WAS ABLE TO EAT TODAY AND THAT SEEMED TO PERK HER UP. I ENCOURAGED HER TO STAY IN TOUCH WITH HER FAMILY, SOME WHAT ESTRANGED. THEY WERE NOT AWARE SHE WAS AT [facility], AND DID NOT WANT TO UPSET THEM. EXTENDED A BLESSING, WILL FOLLOW
--- NOTE | 2017-08-18 14:09 | NUR ---
DISCHARGE PAPER WORK GIVEN. IV TAKEN OUT. PATIENT TOLERATED WELL. NO DURTHER QUESTIONS AT THIS TIME. PATIENT REQUEST CARE RIDE TICKET. CALLED NURSING SUP.
== END 2017-08-18 14:27 | disposition home or self-care (01) | DRG 438 ==
LOC: ED 00:34 → CCU 02:30 → MS 17:35
PROVIDERS: ADMIT Internal Medicine
DX: K85.20 Alcohol induced acute pancreatitis without necrosis or infection (principal); E10.10 Type 1 diabetes mellitus with ketoacidosis without coma; I10 Essential (primary) hypertension; F39 Unspecified mood [affective] disorder; Z59.0 Homelessness; Z56.0 Unemployment, unspecified; Z79.4 Long term (current) use of insulin; F17.200 Nicotine dependence, unspecified, uncomplicated
CPT/HCPCS: 36415; 80048; 80053; 81001; 82010; 82800; 82803; 83036; 83690; 84703; 85025; 96365; 96375; 96376; 99285; 99406; J0780; J1200; J1650; J2405; J2550; J2765; J7030; J7042; J7120

== ENCOUNTER 2017-11-20 21:02 | Observation (INO) | payer OTHER ==
[~2017-11-20] VITALS: Ht 172.7 cm; Wt 72.8 kg
[~2017-11-20 21:02] MED LIST changes: +NICOTINE1 EAC1 TD
[2017-11-21] MEDS ORDERED: TYLENOL325 MG PO (14:42)
[2018-02-05] MEDS ORDERED: NICORETTE4 M2 BUCCAL (10:59)
== END 2017-11-22 14:05 | disposition home or self-care (01) ==
LOC: ED 21:02 → CCU 23:03 → MS 11-21 15:08
PROVIDERS: ADMIT Internal Medicine
DX: E10.10 Type 1 diabetes mellitus with ketoacidosis without coma (principal); I10 Essential (primary) hypertension; F33.9 Major depressive disorder, recurrent, unspecified; F17.200 Nicotine dependence, unspecified, uncomplicated; Z79.899 Other long term (current) drug therapy; Z91.040 Latex allergy status
CPT/HCPCS: 36415; 80048; 80053; 81001; 82010; 82800; 83036; 83690; 84703; 85025; 96372; 96374; 96375; 96376; 99285; 99406; G0378; G0480; J0780; J1650; J2060; J2405; J2550; J2765; J7030; J7042

== ENCOUNTER 2018-03-04 18:04 | Observation (INO) | payer OTHER ==
[~2018-03-04] VITALS: Ht 172.7 cm; Wt 77.2 kg
[~2018-03-04 18:04] MED LIST changes: +TYLENOL325 MG PO
[2018-03-04] MEDS ORDERED: GLUCAGON EMERGEN1 MG INJ (18:27)
[2018-03-04] MEDS ORDERED: METOCLOPRAMIDE H5 MG PO (18:27)
--- NOTE | 2018-03-04 22:10 | NUR ---
PT ARRIVED TO FLOOR VIA STRETCHER, WAS ABLE TO AMBULATE INTO BED. SKIN APPEARS DIRTY, OFFERED FOR PT TO HAVE A SHOWER, SAYS SHE WAIT UNTIL THE MORNING. ALERT/ORIENTED, DENIES PAIN. LUNGS CLEAR, RA. HR REGULAR. BOWEL TONES ACTIVE, REPORTS NAUSEA. DR. IGL CALLED, ORDER RECEIVED FOR PRN REGLAN 5MG IV Q6 NEEDED, ADMINISTERED TO PT. SKIN HAS SCATTERED BRUISES, BUT OTHERWISE APPEARS INTACT. CB, ORDER RECEIVED FROM DR. GIL TO CHANGE FLUID ORDER TO D5NS @ 125ML/HR AND TITRATE INSULIN DRIP PER PROTOCOL. INSULIN DRIP STARTED AT 1.6 UNITS/HR, 25 UNITS LANTUS ADMINISTERED, BOTH VERIFIED W/ 2ND TORRIE GRACIA. PT PROVIDED WITH ICE WATER. PT AMBULATED TO BATHROOM, VOIDED 600ML AND THEN RETURNED TO BED. PT STEADY ON FEET, DENIES DIZZINESS. CALL LIGHT IS WITHIN REACH, PT DENIES FURTHER REQUESTS AT THIS TIME.
--- NOTE | 2018-03-04 23:08 | NUR ---
CB, TITRATED INSULIN DRIP TO 5.3 UNITS/HR, VERIFIED WITH TORRIE GRACIA.
--- NOTE | 2018-03-05 | NUR ---
CB, TITRATED INSULIN DRIP TO 3.6 UNITS/HR, VERIFIED WITH SAMIA BROWNLEE. PT UP TO BATHROOM TO VOID 600ML AND THEN RETURNED TO BED. ASSESSMENT COMPLETED, PT DENIES NAUSEA, NO OTHER CHANGES FROM PREVIOUS ASSESSMENT. PT PROVIDED WITH DIET 7-UP PER REQUEST, NO FURTHER REQUESTS AT THIS TIME. CALL LIGHT IS WITHIN REACH.
--- NOTE | 2018-03-05 01:03 | NUR ---
CB, TITRATED INSULIN DRIP TO 1.8 UNITS/HR, VERIFIED WITH TORRIE GRACIA.
--- NOTE | 2018-03-05 02:05 | NUR ---
CB, TITRATED INSULIN DRIP TO 0.7 UNITS/HR, VERIFIED WITH TORRIE GRACIA. PT UP TO BATHROOM WITH SBA, VOIDED 400ML AND THEN RETURNED TO BED. WARM BLANKETS PROVIDED PER REQUEST, NO FURTHER REQUESTS AT THIS TIME. CALL LIGHT WITHIN REACH, WILL CONTINUE TO MONITOR.
--- NOTE | 2018-03-05 03:05 | NUR ---
CB, TITRATED INSULIN DRIP TO 1.2 UNITS/HR, VERIFIED WITH TORRIE GRACIA.
--- NOTE | 2018-03-05 04:07 | NUR ---
CB, TITRATED INSULIN DRIP TO 3.4 UNITS/HR, VERIFIED WITH TORRIE GRACIA. ASSESSMENT COMPLETED, PT IS DIAPHORETIC, BUT REMAINS AFEBRILE. NO OTHER CHANGES FROM PREVIOUS ASSESSMENT. FRESH ICE WATER PROVIDED PER REQUEST. CALL LIGHT WITHIN REACH, WILL CONTINUE TO MONITOR.
--- NOTE | 2018-03-05 05:00 | NUR ---
CB, TITRATED INSULIN DRIP TO 2.8 UNITS/HR. VERIFIED WITH TORRIE GRACIA.
--- NOTE | 2018-03-05 06:02 | NUR ---
CB, TITRATED INSULIN DRIP TO 2.4 UNITS/HR, VERIFIED WITH TORRIE GRACIA.
--- NOTE | 2018-03-05 07:03 | NUR ---
CB, TITRATED INSULIN DRIP TO 1 UNIT/HR, VERIFIED WITH TORRIE GRACIA.
--- NOTE | 2018-03-05 07:30 | NUR ---
PT SHIFT REPORT RECEIVED FROM DAY SHIFT RN. PT IS RESTING IN BED AND REMAINS ON INSULIN GTT THROUGHOUT THE NIGHT. PT CALLS APPROPRIATELY.
--- NOTE | 2018-03-05 08:00 | NUR ---
PT STATES "I FEEL MUCH BETER THIS MORNING". PT BREATH SOUNDS CLEAR AND ON ROOM AIR. PT REMAINS ON INSULIN GTT AT THIS TIME. BOWEL TONES ACTIVE. PT IS HUNGRY THIS AM. WILL ADVANCE DIET PER . BS 179. INSULIN GTT 1.2 PER SLIDING SCALE.
--- NOTE | 2018-03-05 09:10 | NUR ---
PT BLOOD SUGAR 177. PT HAS BREAKFAST AT THE BED SIDE. PT ABLE TO GET UP AND AMBULATE TO BATHROOM. WILL CONTINUE TO CLOSELY MONITOR.
--- NOTE | 2018-03-05 10:15 | NUR ---
PER MD KEEP INSULIN GTT ON AT THIS TIME. WILL RE-EVALUATE LATER. PT WORKING ON BREAKFAST AT THIS TIME. PT WANTS TO TAKE A SHOWER LATER.
--- NOTE | 2018-03-05 11:27 | NUR ---
PT UP TO BATHROOM AND TOLERATED WELL. BS CHECKED AND VERIFIED GTT RATE WITH 2ND RN. PT IS RESTING IN BED AT THSI TIME. WILL CONTINUE TO CLOSELY MONITOR.
--- NOTE | 2018-03-05 12:30 | NUR ---
PT RESTING IN BED. BLOOD SUGAR CHECKED. PT TOLERATED BREAKFAST AND LUNCH WITH NO ISSUES. UPDATED MD. PER MD DC FLUIDS AND INSULIN AND WALK PT. IF PT TOLERATES WALKING SHE MAY DC HOME. UPDATED PT. PT IS AGREEABLE TO THIS PLAN. WILL CONTINUE TO CLOSELY MONITOR.
--- NOTE | 2018-03-05 12:35 | NUR ---
MED REC COMPLETE
--- NOTE | 2018-03-05 12:45 | NUR ---
PT REQUESTING TO SHOWER PRIOR TO DC. WILL PREPARE SHPWER AND ASSOST PT TO SHOWER BEFORE DC.
--- NOTE | 2018-03-05 14:33 | NUR ---
PT UP AND SHOWERED. PT TOLERATED WELL. PT ABLE TO WALK AROUND ON HER OWN WITH NO ISSUES OR COMPLAINTS. PT DENIES SOB WITH ACTIVITY. PER MD DISCHARGE PT.
--- NOTE | 2018-03-05 14:39 | NUR ---
DISCHARGE PAPERWORK REVIEWED WITH PT. EDUCATED TO FOLLOW UP WITH PCP AND RETURN IF WORSENING OF DKA SYMPTOMS. PT IS AGREEABLE TO PLAN. PT READ BACK INFORMATION. INFORMATION AND BELONINGS SENT WITH PT. KRISTAN COURTNEY BROUGHT PT TO THE FRONT TO AWAIT HER RIDE HOME. PT TRANSFERED IN WHEELCHAIR, BUT TOLERATES AMBULATION WELL. PT IS IN HIGH SPIRITS AND READY TO DISCHARGE. PT VIALS TAKEN AND IV DC'D PER ORDERS.
[2018-03-06] MEDS ORDERED: ZOFRAN ODT4 MG PO (16:37)
[2018-03-06] MEDS ORDERED: PHENERGAN25 MG PR (16:40)
== END 2018-03-05 14:35 | disposition home or self-care (01) ==
LOC: ED 18:04 → CCU 18:05
PROVIDERS: ADMIT Internal Medicine
DX: E10.10 Type 1 diabetes mellitus with ketoacidosis without coma (principal); F10.10 Alcohol abuse, uncomplicated; F32.9 Major depressive disorder, single episode, unspecified; I10 Essential (primary) hypertension; F17.200 Nicotine dependence, unspecified, uncomplicated; G89.29 Other chronic pain; M54.9 Dorsalgia, unspecified; Z79.899 Other long term (current) drug therapy; Z91.040 Latex allergy status
CPT/HCPCS: 36415; 80048; 80053; 81001; 82010; 82800; 83690; 85025; 87088; 96361; 96372; 96374; 96375; 96376; 99285; G0378; J1815; J2405; J2550; J2765; J7030; J7042

== ENCOUNTER 2018-03-06 16:11 | Emergency (ER) | payer OTHER ==
[~2018-03-06] VITALS: Ht 172.7 cm; Wt 77.5 kg
[~2018-03-06 16:11] MED LIST changes: +GLUCAGON EMERGEN1 MG INJ; +METOCLOPRAMIDE H5 MG PO
[2018-03-06] MEDS ORDERED: ZOFRAN ODT4 MG PO (16:37)
[2018-03-06] MEDS ORDERED: PHENERGAN25 MG PR (16:40)
== END 2018-03-06 17:00 | disposition home or self-care (01) ==
LOC: ED 16:11
DX: E10.65 Type 1 diabetes mellitus with hyperglycemia (principal); I10 Essential (primary) hypertension; F17.200 Nicotine dependence, unspecified, uncomplicated; Z91.040 Latex allergy status; Z79.899 Other long term (current) drug therapy
CPT/HCPCS: 99283

== ENCOUNTER 2018-10-22 16:10 | Observation (INO) | payer OTHER ==
[~2018-10-22] VITALS: Ht 172.7 cm; Wt 76.0 kg
[~2018-10-22 16:10] MED LIST changes: +PHENERGAN25 MG PR; +ZOFRAN ODT4 MG PO
--- OUTSIDE RECORDS SUMMARY | 2018-10-22 16:14 | XMS ---
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 Care History Medical/Surgical 02/05/2018 [facility] - Patient is currently established with [facility]. If patient is seen in the ED during business hours. Please contact CHWs at [facility] at [phone]. Care Recommendation: This patient has had 5 or more Emergency Department visits in the last 12 months.\T\nbsp; Patient requires education on the scope and purpose of the ED as an acute care provider not a Primary Care Provider and should not be utilized for chronic conditions.\T\nbsp; If patient returns to ED please contact Community Health WorkerDeirdre at [phone]. These are guidelines and the provider should exercise clinical judgment when providing care. E.D. VISIT COUNT (12 MO.) [address] [place] [id number] LEONID Becerra TOTAL 8 NOTE: Visits indicate total known visits. ED/UCC VISIT TRACKING (12 MO.) 10/22/2018 16:11 [facility] [place] TYPE: Emergency COMPLAINT: - VOMITING 08/01/2018 11:02 [facility] [place] TYPE: Emergency COMPLAINT: - NAUSEA, POSS DEHYDRATION, CONFUSION 03/31/2018 07:10 [facility] [place] TYPE: Emergency COMPLAINT: - DIABETIC PROBLEMS 03/06/2018 16:13 [facility] [place] TYPE: Emergency COMPLAINT: - BLOOD SUGAR PROBLEMS DIAGNOSES: - Essential (primary) hypertension - Latex allergy status - Type 1 diabetes mellitus with hyperglycemia - Other half-way (current) drug therapy - Nicotine dependence, unspecified, uncomplicated 03/04/2018 18:04 [facility] [place] TYPE: Emergency COMPLAINT: - BLOOD SUGAR PROBLEM/VOMITING 02/04/2018 05:28 [facility] [place] TYPE: Emergency COMPLAINT: - DKA DIAGNOSES: - Latex allergy status - Essential (primary) hypertension - Nicotine dependence, cigarettes, uncomplicated - Major depressive disorder, single episode, unspecified - Alcohol abuse, uncomplicated - Type 1 diabetes mellitus with hypoglycemia without coma - Type 1 diabetes mellitus with ketoacidosis without coma - Other half-way (current) drug therapy - Patient's other noncompliance with medication regimen 01/13/2018 19:40 [facility] JannieLauryn SAENZ [place] TYPE: Emergency DIAGNOSES: - Type 1 diabetes mellitus with ketoacidosis without coma 11/20/2017 21:03 [facility] [place] TYPE: Emergency COMPLAINT: - ELEVATED BLOOD SUGAR,VOMITING INPATIENT VISIT TRACKING (12 MO.) 08/01/2018 11:03 [facility] [place] TYPE: Critical Care COMPLAINT: - DIABETIC KETOACIDOSIS DIAGNOSES: - Vomiting, unspecified - Nausea with vomiting, unspecified - Essential (primary) hypertension - MCFP (current) use of insulin - Dehydration - Major depressive disorder, single episode, unspecified - Type 1 diabetes mellitus with ketoacidosis without coma - Other half-way (current) drug therapy - Nicotine dependence, cigarettes, uncomplicated 03/31/2018 07:11 [facility] [place] TYPE: Critical Care COMPLAINT: - DIABETIC PROBLEMS DIAGNOSES: - Other chronic pain - Nicotine dependence, unspecified, uncomplicated - Other half-way (current) drug therapy - Alcohol dependence, uncomplicated - Type 1 diabetes mellitus with ketoacidosis without coma - Dorsalgia, unspecified - Essential (primary) hypertension - Anxiety disorder, unspecified - Major depressive disorder, single episode, unspecified 03/04/2018 18:05 [facility] [place] TYPE: Critical Care COMPLAINT: - DKA DIAGNOSES: - Other half-way (current) drug therapy - Alcohol abuse, uncomplicated - Major depressive disorder, single episode, unspecified - Latex allergy status - Essential (primary) hypertension - Other chronic pain - Type 1 diabetes mellitus with ketoacidosis without coma - Dorsalgia, unspecified - Nicotine dependence, unspecified, uncomplicated 02/04/2018 05:29 [facility] [place] TYPE: Medical Surgical COMPLAINT: - DKA DIAGNOSES: - Major depressive disorder, single episode, unspecified - Alcohol abuse, uncomplicated - Latex allergy status - Type 1 diabetes mellitus with ketoacidosis without coma - Patient's other noncompliance with medication regimen - Type 1 diabetes mellitus with hypoglycemia without coma - Other half-way (current) drug therapy - Nicotine dependence, cigarettes, uncomplicated - Essential (primary) hypertension 01/13/2018 19:40 [facility] Sophia SAENZ [place] TYPE: Dialysis DIAGNOSES: - Nausea with vomiting, unspecified - Type 1 diabetes mellitus with ketoacidosis without coma 11/20/2017 23:03 [facility] [place] TYPE: Medical Surgical COMPLAINT: - DKA DIAGNOSES: - Essential (primary) hypertension - Type 1 diabetes mellitus with ketoacidosis without coma - Major depressive disorder, recurrent, unspecified - Latex allergy status - Nicotine dependence, unspecified, uncomplicated - Other remote computer terminal operator (current) drug therapy [email or web address]
--- NOTE | 2018-10-22 22:16 | NUR ---
PT ADMITTED TO CCU PER STRETCHER 2109. ABLE TO MOVED SELF FROM STRETCHER TO BED. NAUSEAS WORSENS WITH MOVEMENT. OCC VOMITS BROWNISH BILE FLUID. NAUSEA AND VOMITING WORSENED AND DR GIL CALLED. PT GIVEN 10MG COMPAZINE IV AT 2139 AND ABLE TO REST NOW. BS 420 DR GIL CALLED AND IV CHANGED TO NS AT 125ML/HR. PT IS ALERT AND COOPERATIVE. ADMITS TO USING METHAMPHETAMINE AND MARIJUANA ABOUT 1 WEEK AGO. FACE APEARS "PUFFY" SINCE THIS NURSE LAST PT. SKIN ON LEGS IS PURPLISH AND HAS SCATTERED BRUISES ALSO HAS SCATERED SCABS ON LEGS.
--- NOTE | 2018-10-22 22:53 | NUR ---
INSULING GTT WAS STARTED AT 7 UNITS/HR AT 2150, BS 351 AND GTT CHANGED TO 6 UNITS/HR PER PROTOCOL.
--- NOTE | 2018-10-22 22:55 | NUR ---
UP TO [facility] TO VOID, NO N/V.
--- NOTE | 2018-10-22 23:58 | NUR ---
BS 221 INSULIN GTT TO 3.4 UNITS/HR. HR 130'S, T 100.7. PT TRIED 1 ICE CHIP FOR COMFORT BUT MADE HER NAUSEATED. USING SWAB TO MOISTEN MOUTH.
--- NOTE | 2018-10-23 01:12 | NUR ---
SLEEPING. AWAKE FOR BS, BS 166 INSULIN GTT TO 2.4 UNIT/HR. IVF CHANGED TO D5NS AT 125ML/HR
--- NOTE | 2018-10-23 02:10 | NUR ---
LAB IN TO DRAW BLOOD. BS 161, INSULIN TO 1 UNIT/HR.
--- NOTE | 2018-10-23 03:05 | NUR ---
BS 168, INSULIN TO 1.2 UNITS/HR. WAS UP TO VOID AND YVETTE WELL.
--- NOTE | 2018-10-23 04:20 | NUR ---
SLEEPING MOST OF TIME. BS 179, NO CHANGE INSULIN GTT.
--- NOTE | 2018-10-23 05:02 | NUR ---
PT C/O BEING NAUSEATED AND REQUESTING COMPAZINE WHICH SHE SAYS WORKS BETTER FOR HER THAN THE OTHER ANTIEMETICS. GIVEN 10MG COMPAZINE IV. BS 202, INSULIN GTT TO 1.4 UNITS/HR.
--- NOTE | 2018-10-23 06:11 | NUR ---
SLEEPING, NO NAUSEA AT THIS TIME. BS 203, NO CHNAGE TO INSULIN GTT.
--- NOTE | 2018-10-23 08:00 | NUR ---
PT SOMEWHAT FLAT BUT PLEASANT, CALM AND COOPERATIVE. A/O X4 WITH SOME DROWSINESS. PT DENIES PAIN BUT STATES SHE HAS "SOME NAUSEA." NO SOB OR BREATHING ISSUES. ROOM AIR. CONTINUOUS FLUIDS AND INSULIN GTT RUNNING INTO PIV. BLOOD GLUCOSE CHECKS HOURLY. PT DENIES ANY NEEDS AT THIS TIME. PRN COMPAZINE ABLE TO BE GIVEN IN AN HOUR. CALL LIGHT WITHIN REACH. FALL PRECAUTIONS IN PLACE. WILL CONTINUE TO MONITOR.
--- NOTE | 2018-10-23 09:25 | NUR ---
PRN COMPAZINE GIVEN FOR PT'S NAUSEA. EDUCATION GIVEN ON MEDICATION. PT HAS NO FURTHER REQUESTS AT THIS TIME. CALL LIGHT WITHIN REACH. WILL CONTINUE TO MONITOR.
--- NOTE | 2018-10-23 11:00 | NUR ---
PT STATES HER NAUSEA HAS IMPROVED, SHE'S ALSO MORE AWAKE AND LESS DROWSY. SHE WAS ABLE TO TOLERATE ICE CHIPS WELL COMPARED TO EARLY THIS AM ON MANUFACTURING SR ENGINEER- AN IMPROVEMENT FOR THE PT. SHE DENIES ANY NEEDS. HOURLY BLOOD GLUCOSE CHECKS CONTINUE WITH DRIP MONITORING. SHE DENIES ANY NEEDS TO BE MET AT THIS TIME. CALL LIGHT WITHIN REACH. WILL CONTINUE TO MONITOR.
--- NOTE | 2018-10-23 12:01 | NUR ---
PT CONDITION IMPROVED COMPARED TO THIS AM. PT REMAINS VERY PLEASANT, CALM AND COOPERATIVE. SHE'S LESS DROWSY AND DENIES ANY PAIN. SHE STATES THAT HER NAUSEA HAS IMPROVED COMPARED TO THIS MORNING AND IS ABLE TO TOLERATE ICE CHIPS WELL. THE REST OF HER ASSESSMENT HAS NO CHANGES. HER 1000 LABS SHOW THE PT'S NUMBERS ARE IMPROVING. SHE DENIES ANY NEEDS TO BE MET AT THIS TIME. CALL LIGHT WITHIN REACH. WILL CONTINUE TO MONITOR.
--- NOTE | 2018-10-23 12:34 | NUR ---
PT RESTING ON L SIDE, AWAKE AND RESPONDS TO MY VOICE. PT IS PLEASANT, STATED THAT SHE IS FEELING BETTER. NAUSEA HAS BEEN A PROBLEM, ICE CHIPS FOR NOW. PT REQUESTED PRAYER, WILL FOLLOW NEEDED
--- NOTE | 2018-10-23 14:00 | NUR ---
LAB AT THE BEDSIDE. PT'S SIGNIFICANT OTHER AT THE BEDSIDE WELL- STUDENT RN NOTICED THAT PT'S SIGNIFICANT OTHER HAD A CIGARETTE IN HIS HAND (UNLIT) AND A HOMEMADE ROLLED CIGARETTE BEHIND HIS EAR. PT ASKED AT THIS TIME WHEN SHE'S ABLE TO GO HOME. UPDATED ON PLAN OF CARE AND CONDITION.
--- NOTE | 2018-10-23 15:15 | NUR ---
PT RESTLESS/FIDGETY AT THIS TIME; NOTED THAT HER SIGNIFICANT OTHER HAS JUST LEFT FROM VISITING AT THE BEDSIDE. PT DENIES ANY PAIN OR NAUSEA AND STATES HER READINESS TO ADVANCE TO CLEAR LIQUIDS. THIS RN ASKED PT SOME QUESTIONS IN REGARDS TO POSSIBLE ALCOHOL WITHDRAWAL AND SHE SCORED NEGATIVE- ONLY SOME RESTLESSNESS. EMOTIONAL SUPPORT GIVEN. PT DENIES ANY NEEDS AT THIS TIME. CALL LIGHT WITHIN REACH. WILL CONTINUE TO MONITOR.
--- NOTE | 2018-10-23 16:00 | NUR ---
PT RESTING IN BED ON HER SIDE WITHOUT ANY CHANGES TO HER ASSESSMENT. DENIES PAIN, DENIES N/V, DENIES ANY SOB OR BREATHING ISSUES. INSULIN GTT CONTINUES TO RUN WITH HER FLUIDS INTO HER PIV WITHOUT ANY ISSUES. REMAINS SR ON TELE. VSS. SHE DENIES ANY NEEDS. CALL LIGHT WITHIN REACH. WILL CONTINUE TO MONITOR.
--- NOTE | 2018-10-23 17:04 | NUR ---
PT RESTING IN BED. NO CHANGE. NO REQUESTS. CALL LIGHT WITHIN REACH. WILL CONTINUE TO MONITOR.
--- NOTE | 2018-10-23 18:00 | NUR ---
PT ENCOURAGED AT THIS TIME TO GET ON COMMODE TO URINATE SHE HASN'T GONE SINCE THIS MORNING- PT STATES SHE DOESN'T FEEL THE URGE TO GO AND REFUSES TO TRY. WILL ENCOURAGE AGAIN SOON. PT DENIES ANY NEEDS. CALL LIGHT WITHIN REACH. WILL CONTINUE TO MONITOR.
--- NOTE | 2018-10-23 20:00 | NUR ---
CBG 162, INSULIN GTT TITRATED TO 1 UNIT/HR. PT RESTING IN BED, AWAKENS EASILY, RESPONDS APPROPRIATELY. SINUS RHYTHM. LUNGS CLEAR THROUGHOUT. DENIES NAUSEA, BOWEL TONES HYPOACTIVE, TOLERATING ICE CHIPS AND SMALL SIPS OF CLEARS. DENIES PAIN. DENIES N/T IN EXTREMITIES. NO EDEMA NOTED. IV SITE FLUSHED, PATENT, INTACT. UPDATED ON PLAN OF CARE AND REINFORCED SAFETY AND FALL PREVENTION, VERBALIZED UNDERSTANDING AND AGREEABLE. DENIES OTHER NEEDS. CALL TUNG BOLDEN,
--- NOTE | 2018-10-23 21:34 | NUR ---
25 UNIT LANTUS GIVEN, 1 UNIT REGULAR INSULIN GIVEN FOR CBG OF 175. PER DR. JOHNSON, INSULIN GTT TO INFUSE FOR 30 MINS AFTER LANTUS GIVEN THEN DC INSULIN GTT, LR TO INFUSE AT 75 ML/HR ONCE GTT DC'D.
--- NOTE | 2018-10-23 21:50 | NUR ---
INSULIN GTT DC'D AT THIS TIME. LR INFUSING AT 75 ML/HR.
--- NOTE | 2018-10-24 00:16 | NUR ---
AWAKENS EASILY. BS 159. STAES FEELS GOOD. IS DIAPHORETIC AND UNDER SEVERAL BLANKETS. DENIES NEED TO VOID. DRINKING DIET 7-UP AND WATER.
--- NOTE | 2018-10-24 02:13 | NUR ---
CONT TO SLEEP. HAS BEEN TAKING CLEAR LIQ WELL.
--- NOTE | 2018-10-24 04:01 | NUR ---
AWAKE, UP TO BATHROOM TO VOID, YVETTE BEING UP WELL. TAKING PO FLUIDS WELL. HAS BEEN VERY DIAPHORETIC, LINEN CHANGED. SHIVERS BUT IS AFEBRILE, GIVEN WARM BLANKET.
--- NOTE | 2018-10-24 06:23 | NUR ---
HAS BEEN SLEEPING WELL. HR 60'S.
--- NOTE | 2018-10-24 08:20 | NUR ---
PT PLEASANT, CALM AND COOPERATIVE THIS MORNING. NO C/O PAIN, N/V OR SOB. PT HAS TOLERATED CLEAR LIQUIDS THROUGH THE NIGHT WITHOUT ANY ISSUES. SHE STATES SHE'S READY TO EAT JELLO, STATES SHE DOESN'T WANT ANY FOOD. ROOM AIR. URINE IS BRIGHT RED AND PT STATES SHE STARTED HER PERIOD. PT IS STRONG AND STEADY ON HER FEET. SHE DENIES ANY NEEDS AT THIS TIME. CALL LIGHT WITHIN REACH. WILL CONTINUE TO MONITOR.
--- NOTE | 2018-10-24 09:04 | NUR ---
PT HAD NO ISSUES WITH HER JELLO. DENIES ANYTHING AT THIS TIME. KCHLOR INITIATED. CALL LIGHT WITHIN REACH. WILL CONTINUE TO MONITOR.
--- NOTE | 2018-10-24 10:00 | NUR ---
PT IS NAPPING IN HER BED. NO REQUESTS. CALL LIGHT WITHIN REACH.
[2018-10-24] MEDS ORDERED: NICOTINE LOZENGE2 MG BUCCAL (11:33)
[2018-10-24] MEDS ORDERED: NICODERM CQ1 EAC1 TD (11:33)
[2018-10-24] MEDS ORDERED: HUMALOG100 UNIT/2 SUB-Q (11:37)
--- NOTE | 2018-10-24 11:38 | NUR ---
MED REC COMPLETE
--- NOTE | 2018-10-24 11:46 | NUR ---
VERIFIED WITH DR. PERSAUD WHETHER OR NOT TO KEEP PT UNTIL HER ORDERED POTASSIUM IS DONE INFUSING. HE STATES TO HOLD OFF UNTIL THIS IS COMPLETE. CALL LIGHT WITHIN REACH. WILL CONTINUE TO MONITOR.
--- NOTE | 2018-10-24 12:35 | NUR ---
PT SITTING UP IN BED EATING/DRINKING LIQUIDS BROUGHT ON A LIQUID LUNCH TRAY PER HER REQUEST. CONTINUES TO STATE SHE HAS NO N/V, NO PAIN, NO SOB OR BREATHING ISSUES. PLAN OF CARE REVIEWED AND SHE'S AWARE AND STATES HER READINESS FOR DISCHARGE AFTER KCL DONE INFUSING VIA HER PIV. PT REFUSES A SHOWER AGAIN AT THIS TIME. HER LINENS WERE CHANGED THIS AM, HOWEVER, WHEN SHE WAS UP IN THE BATHROOM. SHE DENIES ANY FURTHER NEEDS AT THIS TIME. CALL LIGHT WITHIN REACH. WILL CONTINUE TO MONITOR.
--- NOTE | 2018-10-24 14:10 | NUR ---
PT CURRENTLY UP, IN SHOWER PRIOR TO DC.
--- NOTE | 2018-10-24 14:26 | NUR ---
PT TO BE DC'D, HAD GOOD VISIT. SHE IS ALERT, ORIENTED AND MENTIONED THAT SHE WILL NEED A CARE RIDE HOME. MENTIONED TO RN ALVA, SHE WILL ARRANGE. PT DID NEED RN TO HELP GET TO BR, AND LET HER KNOW STAFF WILL COME IN AND HELP WITH HER SHOWER BEFORE DC. PRAYED WITH PT, WILL FOLLOW NEEDED
== END 2018-10-24 14:55 | disposition home or self-care (01) ==
LOC: ED 16:10 → CCU 16:12
PROVIDERS: ADMIT Internal Medicine
DX: E10.10 Type 1 diabetes mellitus with ketoacidosis without coma (principal); F17.200 Nicotine dependence, unspecified, uncomplicated; I10 Essential (primary) hypertension; G89.29 Other chronic pain; M54.9 Dorsalgia, unspecified; F32.9 Major depressive disorder, single episode, unspecified; F10.10 Alcohol abuse, uncomplicated; F15.10 Other stimulant abuse, uncomplicated; Z79.4 Long term (current) use of insulin; Z79.899 Other long term (current) drug therapy
CPT/HCPCS: 36415; 71045; 80048; 80053; 81001; 82010; 82800; 83605; 83690; 83735; 84100; 84703; 85025; 87502; 96361; 96365; 96366; 96374; 96375; 96376; 99285-25; 99406; C9113; G0378; J0780; J1815; J2405; J2550; J2765; J3480; J7030; J7042; J7060; J7120